=== PATIENT | male | born 1935 | race Hispanic/Latino ===

== ENCOUNTER 2020-10-30 14:52 | Inpatient (IN) | payer OTHER ==
[2020-10-30 17:15] LABS: Absolute Lymphocytes (CBC) 0.7 K/uL (0.7-4.9); Basophils % 0.6 % (0-1.3); Hematocrit 39.7 % (39.6-49.0); Lymphocytes % 8.9 % (15.3-44.8); MPV 6.5 fL (7.6-11.3); RBC Red Blood Cell Count 4.71 M/uL (4.33-5.43)
[2020-10-30 17:23] LABS: Urine Blood Trace-intact (Negative); Urine Glucose Trace (Negative); Urine Protein Negative (Negative); Urine Specific Gravity 1.015 (1.005-1.030); Urine pH 6.5 (5.0-7.0)
[2020-10-30 17:31] LABS: ALT/SGPT 14 U/L (12-78); AST/SGOT 11 U/L (15-37); Albumin 3.9 g/dL (3.4-5.0); Alkaline Phosphatase 95 U/L (45-117); BUN Blood Urea Nitrogen 8 mg/dL (7-18); Bicarbonate 25 mmol/L (21-32); Bilirubin Direct 0.3 mg/dL (0-0.2); Bilirubin Total 1.2 mg/dL (0.2-1.0); Glucose Level 164 mg/dL (74-106); Lipase 120 U/L (73-393); Protein, Total 7.6 g/dL (6.4-8.2); Sodium Level 128 mmol/L (136-145)
[2020-10-30] MEDS ORDERED: NA CHLORIDE 0.9% 500 ML ONE (17:55)
--- NOTE | 2020-10-30 17:56 | RAD REPORT ---
EXAM DESCRIPTION: CT - Stone Protocol - 10/30/2020 5:23 pm CLINICAL HISTORY: FLANK PAIN COMPARISON: No comparisons TECHNIQUE: Axial [address] imaging of the abdomen and pelvis was performed without IV contrast. No IV contrast was given because of allergy, abnormal renal function, patient refusal or physician re quest. No oral contrast administered. All CT scans are performed using dose optimization technique as appropriate and may include automated exposure control or mA/KV adjustment according to patient size. FINDINGS: Fibrotic stranding changes are present. Bronchial wall thickening seen in each lung base. No bronchiectasis. This is believed to be chronic disease. No focal mass, consolidation or pleural ef fusion. No pneumothorax. No cardiomegaly or pericardial effusion. The liver, spleen and pancreas show no suspicious findings on non-contrast imaging. Cholecystectomy c lips are present. No biliary tree dilatation. No hydronephrosis of either kidney. No obstructing or nonobstructing calculi. A 3 centimeter exophyti c cystic mass upper pole right kidney is believed to be an incidental cyst. A lobulated 6.5 centimete r cystic mass posterior mid to lower pole left kidney is present. There is homogeneous fluid attenuat ion with no calcification or fat component. This is believed to be a cluster of multiple abutting thi n-walled cysts rather than a complex septated cystic mass. No significant adrenal finding. Isodense r enal masses and pyelonephritis cannot be excluded in the absence of IV contrast. Urinary bladder show s a 3 centimeter diverticulum anterior dome. An enlarged lobulated prostate gland projects into the b ladder base. No pelvic wall invasion. Enlarged prostate gland abuts but does not appear to invade the rectum. No anterior rectal wall thickening. Stomach is decompressed. There is a very minimal hiatal hernia. No acute gastric wall thickening or m ass identified. There is a large 4 centimeter duodenal diverticulum filled with air and fluid. Small bowel loops are not dilated. An acute appendicitis is not suspected. Patient has a mobile cecum posit ioned in the right mid abdomen. Patient has is distended air and stool filled colon which is also laron te tortuous and redundant. Colon is distended up to cm in multiple locations. The rectum and sigmoid colon are not distended. The transition between distended and decompressed colon shows no wall thicke james or mass. Chronic stricture is possible. Diverticulosis is minimal. No free air, free fluid or inflammatory stranding. No hernia, mass or bulky lymphadenopathy. Disc and bone degenerative changes are present. There is degenerative minimal anterior subluxation of L4 on L5 approximately 30% wedge compression of T11 and T12 noted. No acute fracture line seen. No p athologic component. IMPRESSION: Distention of an air and stool-filled colon from cecum through descending colon up to 6- 7 cm in diameter. There is an abrupt transition between the descending colon and sigmoid colon that m ay indicate sigmoid stricture. There is no mass, wall thickening or adjacent edema at the transition point. Approximately 30% wedge compression of the T11 and T12 vertebrae with no acute fracture line or patho logic change confirmed. No comparison to establish age of the compression fractures. Acute or subacut e fracture cannot be excluded and needs correlation with focal pain symptoms at the thoracolumbar libby ction. Chronic findings as detailed. Patient has an enlarged lobulated prostate gland projects into the b ladder base. Benign prostatic hypertrophy is favored over prostate malignancy. Correlation can be mad e with PSA values. Full assessment is limited is the absence of IV contrast.
[2020-10-30 18:04] LABS: Platelet Estimate INCR; White Blood Cell Scan T (OK)
[2020-10-30 18:05] LABS: Blood Morphology Comment NOTED (NOT SEEN); Poikilocytosis 2+
[2020-10-30 18:13] LABS: Urine Bacteria <20 /HPF (NONE SEEN); Urine RBC <5 /HPF (NONE SEEN)
--- NOTE | 2020-10-30 18:33 | ER ---
Nurse's Notes [facility] Name: Andrew Soto Age: 85 yrs Sex: Male : 1935 Arrival Date: 10/30/2020 Time: 14:55 Bed 15 [facility] MD: Diagnosis: Bowel Obstruction Presentation: 10/30 15:08 Chief complaint: Patient states: Mid back/ flank pain that has been ongoing for 6 ss months, but has gotten worse. Pt was constipated for 6 days, but had a normal BM this morning. Coronavirus screen: Client denies travel out of the [place] in the last 14 days. Ebola Screen: Patient denies exposure to infectious person. Patient denies travel to an Ebola-affected area in the 21 days before illness onset. Initial Sepsis Screen: Does the patient meet any 2 criteria? No. Patient's initial sepsis screen is negative. Does the patient have a suspected source of infection? No. Patient's initial sepsis screen is negative. Risk Assessment: Do you want to hurt yourself or someone else? Patient reports no desire to harm self or others. Onset of symptoms is unknown. 15:08 Method Of Arrival: Wheelchair ss 15:08 Acuity: MEREDITH 3 ss Historical: - Allergies: 15:11 No Known Allergies; ss - PMHx: 15:11 Diabetes - NIDDM; ss - PSHx: 15:11 None; ss - Immunization history:: Adult Immunizations up to date. - Social history:: Smoking status: Patient denies any tobacco usage or history of. Screenin:39 Abuse screen: Denies threats or abuse. Denies injuries from another. Nutritional ad5 screening: No deficits noted. Tuberculosis screening: No symptoms or risk factors identified. Fall Risk Fall in past 12 months (25 points). Secondary diagnosis (15 points) IV access (20 points). Ambulatory Aid- None/Bed Rest/Nurse Assist (0 pts). Gait- Weak (10 pts.). Mental Status- Oriented to own ability (0 pts). Assessment: 17:13 General: Appears in no apparent distress. comfortable, Behavior is calm, cooperative, tr6 appropriate for age. Pain: Complains of pain in pt states he has "kidney pain". Neuro: No deficits noted. Cardiovascular: No deficits noted. Respiratory: No deficits noted. GI: No deficits noted. : Reports difficulty urinating. EENT: No deficits noted. Derm: No deficits noted. Musculoskeletal: No deficits noted. 19:22 Reassessment: Patient appears in no apparent distress at this time. Patient and/or ad5 family updated on plan of care and expected duration. Pain level reassessed. Patient is alert, oriented x 3, equal unlabored respirations, skin warm/dry/pink. 21:00 Reassessment: Patient appears in no apparent distress at this time. Pt brief changed ad5 and pt cleaned at this time. Repositioned for comfort in stretcher and provided warm blanket. Family remains at bedside. Pt denies other needs or c/o at this time. Bed low and locked, bedrails x 2, call light within reach. Informed awaiting bed placement. NAD noted, will continue to monitor. Vital Signs: 15:08 BP 147 / 81; Pulse 80; Resp 16; Temp 98.9(TE); Pulse Ox 96% on R/A; Weight 58.97 kg; ss Height 5 ft. 7 in. (170.18 cm); Pain 0/10; 17:14 BP 163 / 90; Pulse 75; Resp 18; Pulse Ox 100% on R/A; tr6 19:22 BP 170 / 76; Pulse 73; Resp 16 S; Pulse Ox 97% on R/A; ad5 20:09 BP 175 / 89; Pulse 86; Pulse Ox 99% ; mb4 21:00 BP 158 / 80; Pulse 75; Resp 16 S; Pulse Ox 97% on R/A; ad5 15:08 Body Mass Index 20.36 (58.97 kg, 170.18 cm) ED Course: 14:55 Patient arrived in ED. ds1 15:10 Triage completed. ss 15:11 Arm band placed on right wrist. ss 16:45 Shani Parekh FNP-C is PHCP. kb 16:45 Souleymane Grayson MD is Attending Physician. kb 16:53 Nina Rodas RN is Primary Nurse. tr6 17:07 Inserted saline lock: 18 gauge in right antecubital area, using aseptic technique. tr6 Blood collected. 17:22 CT Stone Protocol In Process Unspecified. EDMS 18:32 Ambrosio Porter MD is Hospitalizing Provider. kb 19:00 Patient has correct armband on for positive identification. Placed in gown. Bed in low ad5 position. Call light in reach. Side rails up X2. rn medicare on. Pulse ox on. NIBP on. 19:39 Assisted with dressing. Cleaned of incontinence. mb4 19:44 Pillow given. Head of bed elevated. mb4 21:39 No provider procedures requiring assistance completed. Patient admitted, IV remains in ad5 place. Administered Medications: 17:39 Drug: NS 0.9% 500 ml Route: IV; Rate: bolus; Site: right antecubital; tr6 19:23 Follow up: IV Status: Completed infusion; IV Intake: 500ml ad5 19:23 Drug: Cipro (ciprofloxacin) 400 mg Volume: 200 ml; Route: IVPB; Infused Over: 60 mins; ad5 Site: right antecubital; 20:33 Follow up: IV Status: Completed infusion; IV Intake: 200ml ad5 19:23 Drug: NS 0.9% 1000 ml Route: IV; Rate: 80 ml/hr; Site: right antecubital; ad5 20:32 Drug: Flagyl (metroNIDAZOLE) 500 mg Volume: 100 ml; Route: IVPB; Rate: 200 ml/hr; ad5 Infused Over: 30 mins; Site: right antecubital; Intake: 19:23 IV: 500ml; Total: 500ml. ad5 20:33 IV: 200ml; Total: 700ml. ad5 Outcome: 18:32 Decision to Hospitalize by Provider. kb 21:42 Condition: stable ad5 21:48 Admitted to Med/surg via stretcher, Report called to CHARLES Bishop ad5 21:48 Condition: stable 21:48 Instructed on the need for admit. 21:57 Patient left the ED. ad5 Signatures: Dispatcher [employer] EDOK Shani Parekh, UNDER TRIMMER-C UNDER TRIMMER-Nubia Joaquin ds1 Ly Green RN RN Mercedes Lopez mb4 Nina Rodas RN RN tr6 Jose West ad5
--- NOTE | 2020-10-30 18:33 | EDPHYS ---
Physician Documentation [facility] Name: Andrew Soto Age: 85 yrs Sex: Male : 1935 Arrival Date: 10/30/2020 Time: 14:55 Bed 15 Private MD: ED Physician Souleymane Grayson HPI: 10/30 19:32 This 85 yrs old Male presents to ER via Wheelchair with complaints of Kidney kb Pain, Diff Urinating. 19:32 The patient presents with pain that is chronic. The symptoms are located in the left kb mid back and right mid back. Onset: The symptoms/episode began/occurred 6 month(s) ago. The pain does not radiate. Associated signs and symptoms: The patient has no apparent associated signs or symptoms. The problem was sustained from unknown cause. Modifying factors: The patient symptoms are alleviated by nothing, the patient symptoms are aggravated by any movement. Severity of symptoms: At their worst the symptoms were moderate, in the emergency department the symptoms are unchanged. The patient has not experienced similar symptoms in the past. The patient has not recently seen a physician. Pt reports back pain that has been going on for 6 months. Denies injury or trauma. Also reports constipation for 6 days and difficulty urinating for a week. Denies fever, nausea, vomiting, abd pain. Historical: - Allergies: 15:11 No Known Allergies; ss - PMHx: 15:11 Diabetes - NIDDM; ss - PSHx: 15:11 None; ss - Immunization history:: Adult Immunizations up to date. - Social history:: Smoking status: Patient denies any tobacco usage or history of. ROS: 19:31 Constitutional: Negative for fever, chills, and weight loss. kb 19:31 Abdomen/GI: Positive for constipation, Negative for abdominal pain, nausea, vomiting, and diarrhea. 19:31 Back: Positive for flank pain, bilaterally. 19:31 : Positive for difficulty urinating. 19:31 All other systems are negative. Exam: 19:31 Constitutional: This is a well developed, well nourished patient who is awake, alert, kb and in no acute distress. Head/Face: Normocephalic, atraumatic. ENT: Moist Mucous membranes Cardiovascular: Regular rate and rhythm with a normal S1 and S2. No gallops, murmurs, or rubs. No pulse deficits. Respiratory: Respirations even and unlabored. No increased work of breathing, no retractions or nasal flaring. Abdomen/GI: Soft, non-tender. No distention Skin: Warm, dry with normal turgor. Normal color. MS/ Extremity: Pulses equal, no cyanosis. Neurovascular intact. Full, normal range of motion. Neuro: Awake and alert, GCS 15, oriented to person, place, time, and situation. Moves all extremities. Normal gait. Psych: Awake, alert, with orientation to person, place and time. Behavior, mood, and affect are within normal limits. Vital Signs: 15:08 BP 147 / 81; Pulse 80; Resp 16; Temp 98.9(TE); Pulse Ox 96% on R/A; Weight 58.97 kg; ss Height 5 ft. 7 in. (170.18 cm); Pain 0/10; 17:14 BP 163 / 90; Pulse 75; Resp 18; Pulse Ox 100% on R/A; tr6 19:22 BP 170 / 76; Pulse 73; Resp 16 S; Pulse Ox 97% on R/A; ad5 20:09 BP 175 / 89; Pulse 86; Pulse Ox 99% ; mb4 21:00 BP 158 / 80; Pulse 75; Resp 16 S; Pulse Ox 97% on R/A; ad5 15:08 Body Mass Index 20.36 (58.97 kg, 170.18 cm) ss MDM: 16:45 Patient medically screened. 18:25 Data reviewed: vital signs, nurses notes. Data interpreted: Pulse oximetry: on room air kb is 100 %. Interpretation: normal. Physician consultation: Tayo Carmona MD was contacted at 18:27, regarding consult, patient's condition, and will see patient in inpatient room. 18:31 Physician consultation: Alexx BUSTOS was contacted at 18:31, regarding admission, to the medical/surgical unit. patient's condition, and will see patient in ED, immediately. 10/30 16:46 Order name: Basic Metabolic Panel; Complete Time: 17:31 kb 10/30 16:46 Order name: CBC with Diff; Complete Time: 18:10 kb 10/30 16:46 Order name: Hepatic Function; Complete Time: 17:31 kb 10/30 16:46 Order name: Lipase; Complete Time: 17:31 kb 10/30 16:57 Order name: TSH; Complete Time: 18:06 tr6 10/30 16:58 Order name: Urine Microscopic Only; Complete Time: 18:14 6 10/30 16:46 Order name: CT Stone Protocol; Complete Time: 18:06 10/30 17:22 Order name: Urine Dipstick-Ancillary; Complete Time: 17:31 EDAL 10/30 18:04 Order name: CBC Smear Scan; Complete Time: 18:10 [facility] 10/30 18:25 Order name: Lactate 10/30 18:25 Order name: Lactate; Complete Time: 20:24 EDAL 10/30 16:46 Order name: IV Saline Lock; Complete Time: 17:07 kb 10/30 16:46 Order name: Labs collected and sent; Complete Time: 17:07 10/30 16:58 Order name: Urine Dipstick-Ancillary (obtain specimen); Complete Time: 17:33 6 10/30 20:10 Order name: CONS Physician Consult EDAL Administered Medications: 17:39 Drug: NS 0.9% 500 ml Route: IV; Rate: bolus; Site: right antecubital; tr6 19:23 Follow up: IV Status: Completed infusion; IV Intake: 500ml ad5 19:23 Drug: Cipro (ciprofloxacin) 400 mg Volume: 200 ml; Route: IVPB; Infused Over: 60 mins; ad5 Site: right antecubital; 20:33 Follow up: IV Status: Completed infusion; IV Intake: 200ml ad5 19:23 Drug: NS 0.9% 1000 ml Route: IV; Rate: 80 ml/hr; Site: right antecubital; ad5 20:32 Drug: Flagyl (metroNIDAZOLE) 500 mg Volume: 100 ml; Route: IVPB; Rate: 200 ml/hr; ad5 Infused Over: 30 mins; Site: right antecubital; Disposition: 10/31 07:25 Co-signature as Attending Physician, Souleymane Grayson MD I agree with the assessment and bill plan of care. Disposition: 10/30/20 18:32 Hospitalization ordered by Ambrosio Porter for Inpatient Admission. Preliminary diagnosis is Bowel Obstruction. - Bed requested for Telemetry/MedSurg (Inpatient). - Status is Inpatient Admission. ad5 - Condition is Stable. - Problem is new. - Symptoms are unchanged. Signatures: Dispatcher [employer] EDMS Shani Parekh FNP-C CARPENTRY INSTRUCTOR-Ckb Souleymane Grayson MD MD cha Smirch, Shelby, CHARLES RN ss Gracie Perez, CHARLES RN Nina Rodas RN RN tr6 Brett Jose ad5 Corrections: (The following items were deleted from the chart) 10/30 21:12 18:32 Hospitalization Ordered by Ambrosio Porter MD for Inpatient Admission. Preliminary cg diagnosis is Bowel Obstruction. Bed requested for Telemetry/MedSurg (Inpatient). Status is Inpatient Admission. Condition is Stable. Problem is new. Symptoms are unchanged. kb 21:57 21:12 10/30/2020 18:32 Hospitalization Ordered by Ambrosio Porter MD for Inpatient ad5 Admission. Preliminary diagnosis is Bowel Obstruction. Bed requested for Telemetry/MedSurg (Inpatient). Status is Inpatient Admission. Condition is Stable. Problem is new. Symptoms are unchanged. cg
[2020-10-30] MEDS ORDERED: CIPROFLOXACIN 400mg IV 400 MG/200 ML BAG IV ONE (19:14)
[2020-10-30] MEDS ORDERED: METRONIDAZOLE 500mg IVPB 500 MG/100 ML BAG IV ONE (19:14)
[2020-10-30] MEDS ORDERED: NA CHLORIDE 0.9% 1,000 ML ONE (19:14)
--- NOTE | 2020-10-30 21:05 | P.HP ---
Certification for Inpatient Patient admitted to: Inpatient With expected LOS: >2 Midnights Patient will require the following post-hospital care: None Practitioner: I am a practitioner with admitting privileges, knowledge of patient current condition, hospital course, and medical plan of care. Services: Services provided to patient in accordance with Admission requirements found in Title 42 Section 412.3 of the Code of Federal Regulations Patient History Date of Service: 10/30/20 Primary Care Provider: Abbe Reason for admission: LBO History of Present Illness: Mr. Soto is an 85 yo M with diabetes who presents with 6 days of constipation. He denies abdominal pain, nausea, and vomiting. CT scan revealed distension of air and stool-filled colon from cecum through descending colon up to 6-7cm in diameter with abrupt transition between descending and sigmoid colon that may indicate sigmoid stricture. Additionally he presents with difficulty urinating. Reports urgency and incontinence. Denies frequency, hematuria. CT scan revealed enlarged lobulated prostate gland projecting into bladder base, BPH favored over malignancy. He also reports 6 months of back pain after a fall. CT shows 30% wedge compression of T11 and T12 vertebrae with no acute fracture line or pathologic change confirmed. Na 128, Cl 92, Glu 164. - Past Medical/Surgical History Diabetic: Yes -: DM -: kidney stones Psychosocial/ Personal History: - Social History Smoking Status: Never smoker Alcohol use: No CD- Drugs: No Caffeine use: Yes Place of Residence: Home Review of Systems 10-point ROS is otherwise unremarkable Gastrointestinal: Constipation Genitourinary: Urgency, Incontinence Musculoskeletal: Back Pain Physical Examination - Physical Exam General: Alert, In no apparent distress HEENT: Atraumatic, PERRLA, Mucous membr. moist/pink, EOMI, Sclerae nonicteric Neck: Supple, 2+ carotid pulse no bruit, No LAD, Without JVD or thyroid abnormality Respiratory: Clear to auscultation bilaterally, Normal air movement Cardiovascular: Regular rate/rhythm, Normal S1 S2 Gastrointestinal: Hypoactive, No tenderness, No masses, No rebound, No guarding Musculoskeletal: No clubbing, No swelling, No contractures, No erythema, No warmth, Tenderness Integumentary: No rashes Neurological: Normal speech, Normal strength at 5/5 x4 extr, Normal tone, Sensation intact, Cranial nerves 3-12 intact, Normal affect Lymphatics: No axilla or inguinal lymphadenopathy - Studies Laboratory Data (last 24 hrs) 10/30/20 17:04: WBC 8.10, Hgb 13.0 L, Hct 39.7, Plt Count 471 H 10/30/20 17:04: Sodium 128 L, Potassium 4.0, BUN 8, Creatinine 0.54 L, Glucose 164 H, Total Bilirubin 1.2 H, AST 11 L, ALT 14, Alkaline Phosphatase 95, Lipase 120 Assessment and Plan - Problems (Diagnosis) (1) T2DM (type 2 diabetes mellitus) Current Visit: Yes Status: Chronic Qualifiers: Diabetes mellitus manager long term care insulin use: without manager long term care use Diabetes mellitus complication status: without complication Qualified Code(s): E11.9 - Type 2 diabetes mellitus without complications (2) HTN (hypertension) Current Visit: Yes Status: Chronic Qualifiers: Hypertension type: essential hypertension Qualified Code(s): I10 - Essential (primary) hypertension (3) Compression fracture Current Visit: Yes Status: Chronic (4) Hyponatremia Current Visit: Yes Status: Acute (5) Enlarged prostate Current Visit: Yes Status: Acute (6) Large bowel obstruction Current Visit: Yes Status: Acute - Plan surgery consulted NPO, continue IV cipro and flagyl, continue IV NS will continue to monitor Na, will consult nephrology if no improvement in the AM pain management as needed, PT consulted ESR, CRP, PSA, vitamin D, mag/phos pending sliding scale insulin and accuchecks hydralazine PRN for BP spikes will likely need to see urology as an outpatient for BPH, can start oral medications once LBO resolves Discharge Plan: Home Plan to discharge in: 48 Hours - Advance Directives Does patient have a Living Will: No Does patient have a Durable POA for Healthcare: No - Code Status/Comfort Care Code Status Assessed: Yes (full code) Critical Care: No Time Spent Managing Pts Care (In Minutes): 70
[2020-10-30 22:29] VITALS: BMI 20.3
[2020-10-30] MEDS ORDERED: HYDRALAZINE HCL 20 MG/ML VIAL IV PRN (23:00)
[2020-10-30] MEDS: INSULIN -REGULAR HUMAN 50 UNIT/0.5 ML ML SQ SCH (23:00)
[2020-10-30] MEDS ORDERED: ACETAMINOPHEN 500 MG TAB PO PRN (23:00)
[2020-10-30] MEDS ORDERED: ONDANSETRON 4 MG/2 ML VIAL IV PRN (23:00)
[2020-10-30 23:44] LABS: C-Reactive Protein < 2.90 mg/L (<3.00)
[2020-10-31] MEDS: MORPHINE 2 MG/ML SYR IV PRN ×2 (00:37→20:15)
[2020-10-31] MEDS: NA CHLORIDE 0.9% 1,000 ML IV SCH ×3 (00:38→20:09)
[2020-10-31 03:54] LABS: Urine Appearance CLEAR (Clear); Urine Bilirubin NEGATIVE (Negative); Urine Blood NEGATIVE (Negative); Urine Color YELLOW (Yellow); Urine Glucose TRACE (Negative); Urine Protein NEGATIVE (Negative); Urine Specific Gravity <=1.005 (1.005-1.030)
[2020-10-31 03:57] LABS: Urine Microscopic Reflex NO UMIC
[2020-10-31 03:59] LABS: Absolute Lymphocytes (CBC) 0.8 K/uL (0.7-4.9); Basophils % 0.7 % (0-1.3); Hematocrit 35.7 % (39.6-49.0); Lymphocytes % 12.8 % (15.3-44.8); MPV 6.7 fL (7.6-11.3); RBC Red Blood Cell Count 4.23 M/uL (4.33-5.43)
[2020-10-31] MEDS: METRONIDAZOLE 500mg IVPB 500 MG/100 ML BAG IV SCH ×3 (04:00→20:10)
[2020-10-31 04:18] LABS: ALT/SGPT 11 U/L (12-78); AST/SGOT 8 U/L (15-37); Albumin 3.3 g/dL (3.4-5.0); Alkaline Phosphatase 75 U/L (45-117); BUN Blood Urea Nitrogen 5 mg/dL (7-18); Bicarbonate 28 mmol/L (21-32); Bilirubin Total 1.1 mg/dL (0.2-1.0); Glucose Level 125 mg/dL (74-106); HDL Cholesterol 48 mg/dL (40-60); LDL Cholesterol, Calculated 58 (<130); Magnesium 2.1 mg/dL (1.8-2.4); Phosphorus 3.2 mg/dL (2.5-4.9); Potassium 3.8 mmol/L (3.5-5.1); Protein, Total 6.4 g/dL (6.4-8.2); Sodium Level 133 mmol/L (136-145)
[2020-10-31] MEDS ORDERED: KCL 20 MEQ/100 mL IVPB 20 MEQ/100 ML BAG IV SCH (06:00)
[2020-10-31] MEDS: INSULIN -REGULAR HUMAN 50 UNIT/0.5 ML ML SQ SCH ×4 (07:30→20:11)
[2020-10-31] MEDS: CIPROFLOXACIN 400mg IV 400 MG/200 ML BAG IV SCH ×2 (08:00→20:10)
[2020-10-31] MEDS: LIDOCAINE 4% PATCH TOP SCH (08:13)
[2020-10-31] MEDS ORDERED: PNEUMOCOCCAL VACCINE 0.5 ML IMVAC ONE (09:00)
[2020-10-31 20:51] VITALS: O2SAT 96
[2020-11-01] MEDS: METRONIDAZOLE 500mg IVPB 500 MG/100 ML BAG IV SCH ×2 (03:31→12:54)
[2020-11-01 04:17] LABS: BUN Blood Urea Nitrogen 5 mg/dL (7-18); Bicarbonate 25 mmol/L (21-32); Glucose Level 140 mg/dL (74-106); Potassium 3.9 mmol/L (3.5-5.1); Sodium Level 135 mmol/L (136-145)
[2020-11-01] MEDS ORDERED: POTASSIUM 25 MEQ EFFERV TAB PO ONE (04:45)
[2020-11-01] MEDS: NA CHLORIDE 0.9% 1,000 ML IV SCH (05:31)
[2020-11-01] MEDS: INSULIN -REGULAR HUMAN 50 UNIT/0.5 ML ML SQ SCH ×2 (07:30→12:56)
[2020-11-01] MEDS: CIPROFLOXACIN 400mg IV 400 MG/200 ML BAG IV SCH (08:58)
[2020-11-01] MEDS: LIDOCAINE 4% PATCH TOP SCH (08:58)
--- NOTE | 2020-11-01 09:16 | P.PN ---
Subjective Date of Service: 11/01/20 Primary Care Provider: Abbe Chief Complaint: LBO Subjective: Improving (patient is pain free, feels better, passing gas) Physical Examination - Vital Signs Temperature: 96.9 F Blood Pressure: 183/80 Pulse: 86 Respirations: 16 Pulse Ox (%): 98 - Physical Exam General: Alert, In no apparent distress, Cooperative Gastrointestinal: Soft and benign, No ascites, No tenderness, No masses, No rebound, No guarding Assessment And Plan - Current Problems (Diagnosis) (1) Large bowel obstruction Current Visit: Yes Status: Acute Plan: - likely stool impaction / dehydration - having return of bowel function, start clears and advance as tolerated - enemas daily - serial exams - will need outpatient colonoscopy
--- NOTE | 2020-11-01 09:17 | P.PN ---
Subjective Date of Service: 11/01/20 Primary Care Provider: Abbe Chief Complaint: LBO Subjective: Improving Physical Examination - Vital Signs Temperature: 96.9 F Blood Pressure: 183/80 Pulse: 86 Respirations: 16 Pulse Ox (%): 98 - Physical Exam General: Alert, In no apparent distress, Cooperative Respiratory: Clear to auscultation bilaterally, Normal air movement Cardiovascular: Regular rate/rhythm Gastrointestinal: Soft and benign, Non-distended, No ascites, No tenderness, No masses, No rebound, No guarding Assessment And Plan - Current Problems (Diagnosis) (1) Large bowel obstruction Current Visit: Yes Status: Acute Plan: - likely stool impaction / dehydration - having return of bowel function, start clears and advance as tolerated - enemas daily - serial exams - will need outpatient colonoscopy - reviewed with patient to follow up in 1 carolyn green
[2020-11-01 12:36] VITALS: BP 173/91; TEMP 97.2
--- NOTE | 2020-11-01 13:19 | CON ---
Date of Consultation: 10/30/2020 Brief History Of Present Illness: The patient is an 85-year-old male with diabetes who presents with 6 days of constipation. Denied abdominal pain, nausea, or vomiting. He had distention of his colon with an abrupt transition at the sigmoid junction concerning for a large bowel obstruction. He felt significant improvement with hydration and felt that he was dehydrated prior to my arrival. Past Medical History: Significant only for free of diabetes. Past Surgical History: Denies. Social History: He denies smoking, alcohol, or recreational drug use. Review of Systems: Ten-point review of systems other than HPI, denies. Physical Examination: Vital Signs: At the time examination, his blood pressure is 176/86, pulse 75, respiratory rate 17, t emperature 97.5. General: He is awake, alert, and oriented. Psychiatric: He is appropriate for his age. HEENT: Normocephalic. Sclerae anicteric. Mucous membranes are moist. Oropharynx clear. Neck: Supple without JVD. Chest: Normal expansion and excursion. Cardiovascular: Regular rate and rhythm. Pulmonary: Clear auscultation bilaterally. Abdomen: Soft, nontender, and nondistended. No rebound. No guarding. No focal peritonitis. Extremities: No clubbing, cyanosis, or edema. SKIN: Warm and dry. Laboratory Data: Reveals a white blood cell count of 8.2, hemoglobin is 13.0, hematocrit 39.7, plate let count is 471. His sodium is 128, potassium 4.0, chloride 92, carbon dioxide 25, BUN 8, creatinin e 0.5, glucose 164, lactic acid is 1.3, calcium 8.6. Total bilirubin 1.2, direct bilirubin 0.3, AST 11, ALT 14, alkaline phosphatase is 95. He had a CT scan performed of the abdomen and pelvis, officially read as distention of the hair and s tool-filled colon from cecum to descending colon up to 6 to 7 cm in diameter, abrupt transition at th e descending colon and sigmoid, may indicate sigmoid stricture. No mass, wall thickening or adjacent edema without transition point, wedge compression of T12-T11 vertebrae. No comparison established o r age of the compression fraction. Assessment And Plan: This is an 85-year-old male who came in with a stool burden, possible large bow el obstruction. 1.IV fluid hydration. 2.Electrolyte correction. 3.Serial abdominal exams. 4.I recommend enemas as the patient appears to be fecal impacted. 5.The patient will need outpatient colonoscopy. I have explained the risks, benefits, and alternati ves of the above stated plan. The patient agrees to proceed as indicated. YONATHAN/BEATRIZ Voice ID: [id number] Report ID: [id number]
[2020-11-01] MEDS ORDERED: METFORMIN HCL 500 MG TAB PO SCH (17:00)
[2020-11-02] MEDS ORDERED: lisinopriL 5 MG TAB PO SCH (09:00)
== END 2020-11-01 16:15 | disposition home or self-care (01) | DRG 389 ==
LOC: ER 14:52 → ERHOLD 20:09 → 4TH 21:39
PROVIDERS: ADMIT Hospitalist; ATTEND Hospitalist
DX: K56.609 Unspecified intestinal obstruction, unspecified as to partial versus complete obstruction (principal); E87.1 Hypo-osmolality and hyponatremia; K59.00 Constipation, unspecified; E11.9 Type 2 diabetes mellitus without complications; E86.0 Dehydration; N40.0 Benign prostatic hyperplasia without lower urinary tract symptoms; S22.080D Wedge compression fracture of T11-T12 vertebra, subsequent encounter for fracture with routine healing; Z20.822 Contact with and (suspected) exposure to COVID-19
CPT/HCPCS: 36415; 74176; 76377; 80048; 80053; 80061; 80076; 81003; 81015; 82306; 82947; 83605; 83690; 83735; 84100; 84153; 84403; 84439; 84443; 85025; 85652; 86140; 94760; 96361; 96365; 96375; 97116; 97161; 97530; 99285; J0360; J0744; J2270; J3480; J7030; J7040

== ENCOUNTER 2020-12-04 08:02 | Day surgery (SDC) | payer OTHER ==
[2020-12-04] MEDS ORDERED: NA CHLORIDE 0.9% 1,000 ML ONE (08:34)
[2020-12-04] MEDS ORDERED: propofoL 200 MG/20 ML VIAL IV ONE (08:40)
[2020-12-04] MEDS ORDERED: GLYCOPYRROLATE 0.2 MG/ML SYR ONE (08:40)
[2020-12-04] MEDS ORDERED: LIDOCAINE 1% MPF 30 ML VIAL ONE (08:40)
--- NOTE | 2020-12-04 09:00 | ENDO RPT ---
[address], [address] COLONOSCOPY PROCEDURE REPORT EXAM DATE: 12/04/2020 PATIENT NAME: Andrew Soto MR #: [id number] BIRTHDATE: 1935 ATTENDING: Tayo Carmona DR STATUS: outpatient PERSONAL FINANCIAL PLANNER: Sheri Iyer RN and Jory Rendon RN INDICATIONS: The patient is a 85 yr old Male here for a colonoscopy due to History of possible large bowel obstruction PROCEDURE PERFORMED: Flexible Sigmoidoscopy MEDICATIONS: Per Anesthesia. ESTIMATED BLOOD LOSS: None CONSENT: The patient understands the risks and benefits of the procedure and understands that these risks include, but are not limited to: sedation, allergic reaction, infection, perforation and/or bleeding. Alternative means of evaluation and treatment include, among others: physical exam, x-rays, and/or surgical intervention. The patient elects to proceed with this endoscopic procedure. DESCRIPTION OF PROCEDURE: During intra-op preparation period all mechanical medical equipment was checked for proper function. Hand hygiene and appropriate measures for infection prevention was taken. Procedure, possible complications, alternatives including, but not limited to possibility of bleeding, perforation, tear, infection, sepsis, need for surgery, need for blood transfusion, were explained to the patient. After the risks, benefits and alternatives of the procedure were thoroughly explained, Informed consent was verified, confirmed and timeout was successfully executed by the treatment team. The patient was placed in the left lateral position. A digital rectal exam was performed and revealed an enlarged prostate and A digital rectal exam was performed and revealed internal hemorrhoids. After appropriate level of anesthesia, the scope was passed. The EC-[id number] ([id number]) endoscope was introduced through the anus and advanced to the sigmoid colon. The quality of the prep was inadequate. The instrument was then slowly withdrawn as the colon was fully examined. Scope withdrawal time was 5 minutes. COLON FINDINGS: Unprepped Colon. Retroflexed views revealed no abnormalities. The scope was then completely withdrawn from the patient and the procedure terminated. ADVERSE EVENTS: There were no complications. IMPRESSIONS: Unprepped Colon RECOMMENDATIONS: 1. follow-up: office 1 week(s) 2. barium enema RECALL: Return in 1 week(s) for Colonoscopy. Unprepped Colon Tayo Carmona DR eSigned: Tayo Carmona DR 12/04/2020 9:00 AM cc: CPT CODES: ICD9 CODES:
[2020-12-04 09:50] VITALS: TEMP 97.5
[2020-12-04 10:05] VITALS: BP 106/52; O2SAT 99
== END 2020-12-04 10:05 | disposition home or self-care (01) ==
LOC: OR 08:02
PROVIDERS: ATTEND Surgery
PROC: 0DJD8ZZ Inspection of Lower Intestinal Tract, Via Natural or Artificial Opening Endoscopic (ICD-10-PCS; principal; 2020-12-04 09:15)
DX: K56.609 Unspecified intestinal obstruction, unspecified as to partial versus complete obstruction (principal); K64.8 Other hemorrhoids; N40.0 Benign prostatic hyperplasia without lower urinary tract symptoms; I10 Essential (primary) hypertension; E11.9 Type 2 diabetes mellitus without complications
CPT/HCPCS: 82947; 45330; J2704; J7030

== ENCOUNTER 2021-05-06 13:02 | Inpatient (IN) | payer OTHER ==
--- OUTSIDE RECORDS SUMMARY | 2021-05-06 13:05 | XMS REPORT | Continuity of Care Document ---
:1935 Author Organization [facility] t Address [address] [place] [address] Care Team Providers Name Role Phone Marietta Garcia MD Attending Clinician Field-Hrt Attending Clinician Unavailable CYNTHIA GARCIA Attending Clinician Unavailable CYNTHIA GARCIA Admitting Clinician Unavailable Payers Payer Name Policy Type Policy Number Effective Date Expiration Date S ource Problems Condition Condition Condition Status Onset Resolution Last Treating Co mments Source Name Details Category Date Date Treatment Clinician Date Glaucoma Glaucoma Disease Active [facility] r following following 07-23 [facility] surgery surgery 00:00: of 00 Medicin e Allergic Allergic Disease Active [facility] contact contact 2-18 College dermatitis dermatitis 00:00: of due to due to 00 Medicin drugs in drugs in e contact contact with skin with skin Primary Primary Disease Active 2017-05 [facility] open angle open angle 0-22 Co llege glaucoma glaucoma 00:00: of (POAG) of (POAG) of 00 Medi radha both eyes, both eyes, e severe severe stage stage 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 [facility] of both ia of both 0-08 Co llege eyes eyes 00:00: of 00 Medicin e Bullous Bullous Disease Active 2013-05 [facility] keratopath keratopath - Co llege y y 00:00: of 00 Medicin e Lens Lens Disease Active 2013-05 [facility] replaced replaced Colleg e by other by other 00:00: of means means 00 Medicin e Glaucoma Glaucoma Disease Active 2013-05 [facility] 2- [place] 00:00: of 00 Medicin e Allergies, Adverse Reactions, Alerts Allergy Allergy Status Severity Reaction(s) Onset Inactive Treating Comm ents Source Name Type Date Date Clinician Todd Asencio Active [facility] il ty to [address] [place] adverse 00:00: of reaction 00 Medicin s to e drug Social History Social Habit Start Date Stop Date Quantity Comments Source Sex Assigned At [facility] llege of Medicine Exposure to Not sure [facility] Colle e of SARS-CoV-2 (event) Medici ne Tobacco use and 2020-02-28 2020-02-28 Never used [facility] llege of exposure 00:00:00 00:00:00 Medicine Smoking Status Start Date Stop Date Source Never smoker [facility] o f Medicine Medications Ordered Filled Start Stop Current Ordering Indication Dosage Frequency Signature Comments Components Source Medication Medication Date Date Medication? Clinician (SIG) Name Name diflupredna Yes 1[drp] Place 1 [facility] 4-29 Drop into College (DUREZOL) 00:00: the left of 0.05 % 00 eye four Medicin ophthalmic times e emulsion daily. gatifloxaci 2018- Yes 1[drp] Place 1 [facility] (ZYMAXID) 4-29 Drop into Col lege 0.5 % 00:00: the left of ophthalmic 00 eye 3 Medicin solution times e daily. diflupredna 2018-0 Yes 1[drp] Place 1 [facility] 4-29 Drop into [place] (DUREZOL) 00:00: the left of 0.05 % 00 eye four Medicin ophthalmic times e emulsion daily. gatifloxaci 2019- Yes 1[drp] Place 1 [facility] (ZYMAXID) 4-29 Drop into Col lege 0.5 % 00:00: the left of ophthalmic 00 eye 3 Medicin solution times e daily. diflupredna 2019-0 Yes 1[drp] Place 1 [facility] 4-29 Drop into College (DUREZOL) 00:00: the left of 0.05 % 00 eye four Medicin ophthalmic times e emulsion daily. gatifloxaci 2019- Yes 1[drp] Place 1 [facility] (ZYMAXID) 4-29 Drop into Col lege 0.5 % 00:00: the left of ophthalmic 00 eye 3 Medicin solution times e daily. diflupredna 2018- 2020- No 1[drp] Place 1 [facility] te 09-14 Drop into College (DUREZOL) 00:00: 00:00 the left of 0.05 % 00 :00 eye four Medicin ophthalmic times e emulsion daily. gatifloxaci 2020- No 1[drp] Place 1 [facility] n (ZYMAXID) 09-14 Drop into Co llege 0.5 % 00:00: 00:00 the left of ophthalmic 00 :00 eye 3 Medicin solution times e daily. methazolAMI 2019-0 Yes 50mg Take 50 mg [facility] DE 50 MG 2-18 by mouth College TABS 00:00: two times of 00 daily. Medicin e methazolAMI Yes 50mg Take 50 mg [place] 50 MG 2-18 by mouth College TABS 00:00: two times of 00 daily. Medicin e methazolAMI 0 Yes 50mg Take 50 mg [place] 50 MG 2-18 by mouth College TABS 00:00: two times of 00 daily. Medicin e methazolAMI 2020- No 50mg Take 50 mg [place] 50 MG 2-18 10-12 by mouth Colleg e TABS 00:00: 00:00 two times of 00 :00 daily. Medicin e metformin 2018-0 Yes 1000mg Take 1,000 [facility] (GLUCOPHAGE 9-27 mg by [place] ) 1000 MG 00:00: mouth two of tablet 00 times Medicin daily. e metformin 2018-0 Yes 1000mg Take 1,000 [facility] (GLUCOPHAGE 9-27 mg by [place] ) 1000 MG 00:00: mouth two of tablet 00 times Medicin daily. e metformin 2018-0 Yes 1000mg Take 1,000 [facility] (GLUCOPHAGE 9-27 mg by [place] ) 1000 MG 00:00: mouth two of tablet 00 times Medicin daily. e metformin 2018-0 Yes 1000mg Take 1,000 [place] (GLUCOPHAGE 9-27 mg by [place] ) 1000 MG 00:00: mouth two of tablet 00 times Medicin daily. e Metformin Metformin Yes Quintin TAKE [address] HCl HCl [facility]T [facility] Quintin [address] [facility] Vitamin B12 Vitamin B12 2018- No Quintin [address] [facility] 02-12 [facility] Procedures Procedure Date / Time Performed Performing Clinician [facility] ubaldo RANGEL VISUAL FIELD 2019-07-05 20:52:38 Marietta Garcia [facility] - BOTH EYES Medicine Plan of Care Planned Activity Planned Date Details Comments Source Future Scheduled MEDICARE AWV [code [facility] Test = MEDICARE AWV] of Medicine Future Scheduled TETANUS SHOT [facility] Endy ege Test (ADULT) [code = of Medicine TETANUS SHOT (ADULT)] Future Scheduled FALL SCREEN [code [facility] Test = FALL SCREEN] of Medicine Future Scheduled PNEUMOVAX >=65 [facility] Co llege Test (PPSV23) [code = of Medicine PNEUMOVAX >=65 (PPSV23)] Future Scheduled PREVNAR >= 65 [facility] Col lege Test (PCV13) [code = of Medicine PREVNAR >= 65 (PCV13)] Future Scheduled FLU VACCINE > 6 [facility] C ollege Test MONTHS [code = FLU of Medici ne VACCINE > 6 MONTHS] Future Scheduled TETANUS SHOT [place] Endy ege Test (ADULT) [code = of Medicine TETANUS SHOT (ADULT)] Future Scheduled MEDICARE AWV [place] Endy ege Test (Initial) [code = of Medicin e MEDICARE AWV (Initial)] Future Scheduled FALL SCREEN [code [facility] Test = FALL SCREEN] of Medicine Future Scheduled PNEUMOVAX >=65 [facility] Co llege Test (PPSV23) [code = of Medicine PNEUMOVAX >=65 (PPSV23)] Future Scheduled PREVNAR >= 65 [facility] Col lege Test (PCV13) [code = of Medicine PREVNAR >= 65 (PCV13)] Future Scheduled FLU VACCINE > 6 [place] C ollege Test MONTHS [code = FLU of Medici ne VACCINE > 6 MONTHS] Future Scheduled TETANUS SHOT [place] Endy ege Test (ADULT) [code = of Medicine TETANUS SHOT (ADULT)] Future Scheduled MEDICARE AWV [place] Endy ege Test (Initial) [code = of Medicin e MEDICARE AWV (Initial)] Future Scheduled PNEUMOVAX >=65 [place] Co llege Test (PPSV23) [code = of Medicine PNEUMOVAX >=65 (PPSV23)] Future Scheduled PREVNAR >= 65 [facility] Col lege Test (PCV13) [code = of Medicine PREVNAR >= 65 (PCV13)] Future Scheduled FLU VACCINE > 6 [facility] C ollege Test MONTHS [code = FLU of Medici ne VACCINE > 6 MONTHS] Future Scheduled FALL SCREEN [code [facility] Test = FALL SCREEN] of Medicine Future Scheduled TETANUS SHOT [facility] Endy ege Test (ADULT) [code = of Medicine TETANUS SHOT (ADULT)] Future Scheduled ZOSTER VACCINE (1 [facility] Test of 2) [code = of Medicine ZOSTER VACCINE (1 of 2)] Future Scheduled MEDICARE AWV [facility] Endy ege Test (Initial) [code = of Medicin e MEDICARE AWV (Initial)] Future Scheduled PNEUMOVAX >=65 [facility] Co llege Test (PPSV23) [code = of Medicine PNEUMOVAX >=65 (PPSV23)] Future Scheduled FLU VACCINE > 6 [facility] C ollege Test MONTHS [code = FLU of Medici ne VACCINE > 6 MONTHS] Future Scheduled FALL SCREEN [code [facility] Test = FALL SCREEN] of Medicine Future Scheduled RANGEL VISUAL 1 Occurrences [facility] Test FIELD - OU - BOTH starting 03/04/2019 of Medicine EYES [code = until 06/04/2020 18553] Encounters Start End Encounter Admission Attending Care Care Encounter Source Date/Time Date/Time Type Type Clinicians Facility Department ID 2021-01-01 2021-01-01 Outpatient [facility] [id number] LYDIA Ferrer 00:00:00 00:00:[facility] 2020-11-06 2020-11-06 Outpatient [facility] [id number] LYDIA Ferrer 00:00:00 00:00:[facility] 2020-11-02 2020-11-02 Outpatient [facility] [id number] LYDIA Ferrer 00:00:00 00:00:[facility] 2020-10-30 2020-10-30 Outpatient [facility] [id number] LYDIA Ferrer 00:00:00 00:00:[facility] 2020-10-02 2020-10-02 Outpatient [facility] [id number] [facility] 2020-10-02 2020-10-02 [facility] [id number] 2020-06-29 2020-06-29 Outpatient [facility] [id number] [facility] 2020-03-27 2020-03-27 [facility] [id number] [facility] 2020-02-28 2020-02-28 Office MIGUEL A Garcia [id number] [facility] 13:36:14 15:42:01 Visit Marietta AMBULATOR [id number] College Cynthia Y [id number] of [id number] [facility] 300 e 2020-01-06 2020-01-06 [facility] [id number] 14:30:00 14:30:00 t [facility] - [facility] Medicine Outpati ent Clinics 2019-11-01 2019-11-01 Office Radha [facility] [id number] [facility] 13:58:04 15:19:28 Visit Marietta AMBULATOR [id number] College Cynthia Y [id number] of [id number] [facility] radha 300 e 2019-10-06 2019-10-06 [facility] [id number] 16:30:00 16:30:00 t Rigby COSMIC COLOR s - [facility] Medicine Outpati ent Clinics 2019-10-06 2019-10-06 [facility] [id number] 15:45:00 15:45:00 t AppMyDay s - Drive [facility] Medicine Outpati ent Clinics 2019-07-05 2019-07-05 Office Marietta Garcia Cynthia [facility] [id number] [facility] 14:12:47 14:52:47 Visit Field-Hrt, Visual AMBULATOR [id number] 1 College Y [id number] of [id number] [facility] 300 e 2019-05-20 2019-05-20 [facility] [id number] 09:14:00 09:14:00 [facility] 2019-03-04 2019-03-04 Office LIAN Garcia [id number] [facility] 12:41:18 15:53:57 Visit Marietta AMBULATOR [id number] College Cynthia Y [id number] of [id number] [facility] 300 e 2019-02-17 2019-02-17 [facility] [id number] 13:00:00 13:00:00 [facility] Clinics 2018-08-18 2018-08-18 [facility] [id number] 13:15:00 13:15:00 [facility] 2018-02-17 2018-02-17 [facility] [id number] 13:45:00 13:45:00 [facility] Results Test Description Test Time Test Comments Results Result [facility] e Comments RANGLE VISUAL 2019-07-05 Study [facility] FIELD - OU - BOTH 21:52:13 performed/reviewed [facility] EYES : none Assessment Medicin e & Plan: Encounter Diagnosis and Orders ICD-10-CM 1. Primary open angle glaucoma (POAG) of both eyes, severe stage H40.1133 2. Glaucoma following surgery H40.9 RANGEL VISUAL FIELD - OU - BOTH EYES 1.S/p trab with [facility] OS 09/16/2018, trabeculecomy with [facility] (20mcg) OD- doing great- intolerant or allergic to many topical meds- off all drops, if creeps into high teens next visit, may add am occudose The patient is asked to return in/for 4 months IOP check. /DFE Risks, benefits, and alternatives of treatment discussed with the patient. All questions regarding diagnosis and treatment answered to satisfaction. The history, exam, testing, assessment and plan of the learner or auto glass technician, if present, have been reviewed and I personally examined the patient.I have reviewed the PMH, SH, FHX, ROS, MEDS, ALLERGIES and HPI, and have updated the computerized patient record appropriately. POCT-GLUCOSE METER 2018-09-23 05:11:00 Test Item Value Reference Range Interpretation Comme nts POC-GLUCOSE METER (Uro Jock) (test 120 mg/dL 70-110 H TESTED AT [facility] 7200 code = 1538) [facility] [id number] POCT-GLUCOSE [id number] 09:44:00 Test Item Value Reference Range Interpretation Comments POC-GLUCOSE METER 158 mg/dL 70-110 H TESTED AT [facility] 7200 (Uro Jock) (test code JAMIE Valiente [facility] B = 1538) [facility] 7703 0
[2021-05-06 14:29] LABS: ALT/SGPT 18 U/L (12-78); AST/SGOT 15 U/L (15-37); Alkaline Phosphatase 88 U/L (45-117); BUN Blood Urea Nitrogen 33 mg/dL (7-18); Bicarbonate 24 mmol/L (21-32); Bilirubin Direct 0.4 mg/dL (0-0.2); Bilirubin Total 1.1 mg/dL (0.2-1.0); Glucose Level 120 mg/dL (74-106); Potassium 3.7 mmol/L (3.5-5.1); Protein, Total 6.2 g/dL (6.4-8.2); Sodium Level 145 mmol/L (136-145)
[2021-05-06 14:30] LABS: Magnesium 1.9 mg/dL (1.8-2.4); NT PRO-BNP 198 pg/mL (<450)
[2021-05-06 14:35] LABS: Absolute Lymphocytes (CBC) 1.3 K/uL (0.7-4.9); Basophils % 0.9 % (0-1.3); Hematocrit 43.4 % (39.6-49.0); Lymphocytes % 14.5 % (15.3-44.8); MPV 7.2 fL (7.6-11.3); RBC Red Blood Cell Count 4.77 M/uL (4.33-5.43)
[2021-05-06 14:57] LABS: Protime INR 0.99
--- NOTE | 2021-05-06 15:29 | RAD REPORT ---
EXAM DESCRIPTION: CT - Chest Abdomen Pelvis W Cont - 05/06/2021 3:09 pm CLINICAL HISTORY: Chest and abdominal pain. Hematuria COMPARISON: October 2020 TECHNIQUE: Computed axial tomography of the chest, abdomen and pelvis was obtained. 100 cc Isovue-30 0 was administered intravenously. Oral contrast was not requested. This limits evaluation of bowel. All CT scans are performed using dose optimization technique as appropriate and may include automated exposure control or mA/KV adjustment according to patient size. FINDINGS: Mild tree-in-bud opacities right lower lobe. A pleural effusion is not present. A pericardial effusion is not seen No mediastinal or hilar lymphadenopathy The liver, spleen, pancreas, adrenals and left kidney are unremarkable Right renal cysts. Largest measures 6.4 centimeters. The prostate gland is moderately to markedly enlarged which asymmetrically abuts the base of the blad iva. Bladder wall is thickened. Six lumbar vertebra. Progression in the compression fracture of the L1 vertebral body which is marked . Moderate compression fracture T11 vertebral body which appears subacute. Moderate amount of stool within the colon IMPRESSION: Mild tree-in-bud opacities right lower lobe may indicate mild atypical pneumonia Moderate to marked prostatic enlargement which asymmetrically abuts the base of the bladder. This may represent prostatic hypertrophy. Underlying neoplasm can also have this appearance and should be cor related clinically and with appropriate lab values. Bladder wall thickening presumably secondary to a chronic bladder outlet obstruction Six lumbar vertebra. Progression in the compression fracture of the L1 vertebral body which is marked . Moderate compression fracture T11 vertebral body which appears subacute.
[2021-05-06 15:39] LABS: Urine Blood 3+ (Negative); Urine Glucose Trace (Negative); Urine Protein 3+ (Negative); Urine pH >=9.0 (5.0-7.0)
[2021-05-06 16:06] LABS: Urine Bacteria >50 /HPF (NONE SEEN); Urine Crystals Unidentified MANY (NONE SEEN); Urine RBC LOADED /HPF (NONE SEEN)
[2021-05-06] MEDS ORDERED: CEFTRIAXONE 1000 MG/VIAL ONE (16:27)
[2021-05-06] MEDS ORDERED: NA CHLORIDE 0.9% 50 ML ONE (16:27)
--- NOTE | 2021-05-06 16:31 | ER ---
Nurse's Notes [facility] Name: Andrew Soto Age: 86 yrs Sex: Male : 1935 Arrival Date: 05/06/2021 Time: 13:03 Bed 8 Private MD: Quintin Mcadams Diagnosis: Dehydration;Acute cystitis with hematuria;Pneumonia, unspecified organism Presentation: 05/06 13:21 Chief complaint: Patient's son or daughter states: blood in urine that began this ss morning. Coronavirus screen: Client denies travel out of the [place] in the last 14 days. Ebola Screen: Patient denies exposure to infectious person. Patient denies travel to an Ebola-affected area in the 21 days before illness onset. Initial Sepsis Screen: Does the patient meet any 2 criteria? No. Patient's initial sepsis screen is negative. Does the patient have a suspected source of infection? No. Patient's initial sepsis screen is negative. Risk Assessment: Do you want to hurt yourself or someone else? Patient reports no desire to harm self or others. Onset of symptoms was May 06, 2021. 13:21 Method Of Arrival: Wheelchair ss 13:21 Acuity: MEREDITH 3 ss Historical: - Allergies: 13:21 No Known Allergies; ss - PMHx: 13:34 Diabetes - NIDDM; Hypertensive disorder; jl7 - Immunization history:: Client reports receiving the 2nd dose of the Covid vaccine. - Social history:: Smoking status: Patient denies any tobacco usage or history of. Screenin:00 Abuse screen: Denies threats or abuse. Denies injuries from another. Nutritional jl7 screening: Pt's son reports decreased appetite. Tuberculosis screening: No symptoms or risk factors identified. Fall Risk IV access (20 points). Total Mckenna Fall Scale indicates High Risk Score (45 or more points). Fall prevention measures have been instituted. Side Rails Up X 2 1:1 Attendant Assigned Frequent Obs/Assessments Occuring Family Present and informed to notify staff if the need to leave the bedside As available patient and family educated on Fall Prevention Program and Strategies. Assessment: 13:30 General: Appears in no apparent distress. uncomfortable, cachectic, Behavior is calm, jl7 cooperative, appropriate for age. Pain: Denies pain. Neuro: Level of Consciousness is awake, alert. Cardiovascular: Patient's skin is warm and dry. Respiratory: Airway is patent Respiratory effort is even, unlabored, Respiratory pattern is regular, symmetrical. GI: Abdomen is flat, non-distended. : Parent/caregiver report the patient having blood in urine. Derm: Skin is dry, Skin is normal, Skin temperature is warm. 15:00 Reassessment: Patient appears in no apparent distress at this time. No changes from jl7 previously documented assessment. Patient and/or family updated on plan of care and expected duration. Pain level reassessed. 16:30 Reassessment: Hospitalist at bedside. jl7 Vital Signs: 13:21 BP 118 / 66; Resp 20; Temp 97.5(TE); Pulse Ox 98% on R/A; ss 14:30 BP 102 / 69; Pulse 83; Resp 15; Pulse Ox 93% ; jl7 15:38 BP 120 / 66; Pulse 82; Resp 14; Pulse Ox 98% ; jl7 16:38 BP 136 / 82; Pulse 77; Resp 15; Pulse Ox 99% on R/A; jl7 ED Course: 13:03 Patient arrived in ED. ds1 13:04 Quintin Mcadams DO is Private Physician. ds1 13:09 Carmine Wolff, CHARLES is Primary Nurse. jl7 13:11 Shani Parekh FNP-C is [facility]. kb 13:11 Cordell Galvan MD is Attending Physician. kb 13:20 Patient has correct armband on for positive identification. Placed in gown. Bed in low jl7 position. Call light in reach. Side rails up X2. monitor tech on. Pulse ox on. NIBP on. Warm blanket given. 13:21 Triage completed. ss 13:21 Arm band placed on right wrist. ss 14:00 Initial lab(s) drawn, by ks, sent to lab. Inserted saline lock: 22 gauge in left jl7 forearm, using aseptic technique. Blood collected. 15:00 Straight cath inserted, using sterile technique, 16 Fr. Specimen obtained. Returned jl7 bloody urine. Patient tolerated well. 15:09 CT Chest, Abdomen, Pelvis - W/Contrast In Process Unspecified. EDMS 16:31 Arslan Javier MD is Hospitalizing Provider. kb 18:04 No provider procedures requiring assistance completed. Patient admitted, IV remains in jl7 place. intact, No redness/swelling at site. Administered Medications: 17:12 Drug: Rocephin (cefTRIAXone) 1 grams Route: IV; Rate: calculated rate; Site: left jl7 forearm; 17:20 Follow up: Response: No adverse reaction; IV Status: Completed infusion jl7 17:12 Drug: NS 0.9% 1000 ml Route: IV; Rate: 100 ml/hr; Site: left forearm; jl7 18:04 Follow up: IV Status: Infusion continued upon admission jl7 Outcome: 16:31 Decision to Hospitalize by Provider. kb 18:04 Admitted to Tele accompanied by tech, family with patient, via stretcher, room 217, [facility] with chart, Report called to CHARLES Presley 18:04 Condition: stable 18:04 Discharge instructions given to patient, family, Instructed on the need for admit, Demonstrated understanding of instructions. 18:27 Patient left the ED. [facility] Signatures: Dispatcher [employer] EDMS Shani Parekh, SEAN LIGHT RAIL OPERATOR-Nubia Joaquin ds1 Ly Green, CHARLES SOTO Carmine Wolff RN RN jl7
--- NOTE | 2021-05-06 16:32 | EDPHYS ---
Physician Documentation [facility] Name: Andrew Soto Age: 86 yrs Sex: Male : 1935 Arrival Date: 05/06/2021 Time: 13:03 Bed 8 Private MD: Wander Mcadamsh ED Physician Cordell Galvan HPI: 05/06 16:05 This 86 yrs old Male presents to ER via Wheelchair with complaints of Blood In kb Urine, Weight Loss. 16:05 The patient presents with urinary symptoms, hematuria. Onset: The symptoms/episode kb began/occurred today. Modifying factors: The symptoms are alleviated by nothing, the symptoms are aggravated by urinating. Associated signs and symptoms: Pertinent positives: hematuria, Pertinent negatives: abdominal pain, constipation, diarrhea, dysuria, fever, nausea, vomiting. Severity of symptoms: At their worst the symptoms were moderate, in the emergency department the symptoms are unchanged. The patient has not experienced similar symptoms in the past. The patient has not recently seen a physician. Son states pt has had increased weakness, decreased appetite and weight loss over the past month. Also reports pt has developed bedsores over the last month. Came in today because pt had blood in his urine. . Historical: - Allergies: 13:21 No Known Allergies; ss - PMHx: 13:34 Diabetes - NIDDM; Hypertensive disorder; jl7 - Immunization history:: Client reports receiving the 2nd dose of the Covid vaccine. - Social history:: Smoking status: Patient denies any tobacco usage or history of. ROS: 16:05 Cardiovascular: Negative for chest pain, palpitations, and edema. kb 16:05 Constitutional: Positive for poor PO intake, weight loss. 16:05 : Positive for hematuria. 16:05 Neuro: Positive for weakness. 16:05 All other systems are negative. Exam: 16:05 Head/Face: Normocephalic, atraumatic. Cardiovascular: Regular rate and rhythm with a kb normal S1 and S2. No gallops, murmurs, or rubs. No pulse deficits. Respiratory: Respirations even and unlabored. No increased work of breathing. Talking in full sentences Abdomen/GI: Soft, non-tender. No distention Skin: Warm, dry with normal turgor. Normal color. MS/ Extremity: Pulses equal, no cyanosis. Neurovascular intact. Full, normal range of motion. 16:05 Constitutional: The patient appears alert, awake, emaciated, frail. 16:05 Skin: stage 2 bedsores, approx dime sized, x4 to buttocks with no signs of infection. 16:05 Neuro: Exam negative for acute changes, Gait: needs assistance. Vital Signs: 13:21 BP 118 / 66; Resp 20; Temp 97.5(TE); Pulse Ox 98% on R/A; ss 14:30 BP 102 / 69; Pulse 83; Resp 15; Pulse Ox 93% ; jl7 15:38 BP 120 / 66; Pulse 82; Resp 14; Pulse Ox 98% ; jl7 16:38 BP 136 / 82; Pulse 77; Resp 15; Pulse Ox 99% on R/A; jl7 MDM: 13:11 Patient medically screened. kb 15:52 Data reviewed: vital signs, nurses notes. Data interpreted: Pulse oximetry: on room air kb is 98 %. Interpretation: normal. 16:10 Counseling: I had a detailed discussion with the patient and/or guardian regarding: the kb historical points, exam findings, and any diagnostic results supporting the discharge/admit diagnosis, lab results, radiology results, the need for further work-up and treatment in the hospital. Physician consultation: Arslan Javier MD was contacted at 16:00, regarding admission, to the medical/surgical unit. patient's condition. 16:30 Physician consultation: Arslan Javier MD in the emergency department to see patient at kb 16:31. 05/06 13:22 Order name: Basic Metabolic Panel; Complete Time: 14:31 kb 05/06 13:22 Order name: CBC with Diff; Complete Time: 14:38 kb 05/06 13:22 Order name: LFT's; Complete Time: 14:31 kb 05/06 13:22 Order name: Magnesium; Complete Time: 14:31 kb 05/06 13:22 Order name: NT PRO-BNP; Complete Time: 14:31 kb 05/06 13:22 Order name: PT-INR; Complete Time: 15:05 kb 05/06 13:22 Order name: CT Chest, Abdomen, Pelvis - W/Contrast; Complete Time: 15:33 kb 05/06 13:22 Order name: Urine Microscopic Only; Complete Time: 16:10 kb 05/06 13:46 Order name: COVID-19 SARS RT PCR (Document "Date of Onset" if Symptomatic) vg1 05/06 15:39 Order name: Urine Dipstick-Ancillary; Complete Time: 15:44 EDPA 05/06 16:07 Order name: Urine Culture [facility] 05/06 17:09 Order name: Comprehensive Metabolic Panel [facility] 05/06 17:09 Order name: Magnesium EDPA 05/06 13:22 Order name: EKG; Complete Time: 13:22 kb 05/06 13:22 Order name: Cardiac monitoring; Complete Time: 13:47 kb 05/06 13:22 Order name: EKG - Nurse/Tech; Complete Time: 13:47 kb 05/06 13:22 Order name: IV Saline Lock; Complete Time: 13:47 kb 05/06 13:22 Order name: Labs collected and sent; Complete Time: 13:47 kb 05/06 13:22 Order name: O2 Per Protocol; Complete Time: 14:55 kb 05/06 13:22 Order name: O2 Sat Monitoring; Complete Time: 14:55 kb 05/06 13:22 Order name: Urine Dipstick-Ancillary (obtain specimen); Complete Time: 15:39 kb 05/06 14:11 Order name: Labs - recollect needed: recollect blue top/ short; Complete Time: 14:55 eb 05/06 17:04 Order name: Social Service Consult [facility] 05/06 17:09 Order name: Case Management Consult [facility] 05/06 17:09 Order name: Physical Therapy Consult [facility] 05/06 17:09 Order name: 60g Consistent Carbohydrate (ADA 1800/1999) [facility] Administered Medications: 17:12 Drug: Rocephin (cefTRIAXone) 1 grams Route: IV; Rate: calculated rate; Site: left jl7 forearm; 17:20 Follow up: Response: No adverse reaction; IV Status: Completed infusion jl 17:12 Drug: NS 0.9% 1000 ml Route: IV; Rate: 100 ml/hr; Site: left forearm; jl7 18:04 Follow up: IV Status: Infusion continued upon admission jl7 Disposition: 18:31 Co-signature as Attending Physician, Cordell Galvan MD I agree with the assessment and rn plan of care. Attestation: The patient's history, exam findings, diagnostics, and a summary of any interventions or procedures was reviewed in detail with Shani ESTRADA. Disposition Summary: 05/06/21 16:31 Hospitalization Ordered Hospitalization Status: Inpatient Admission kb Provider: Arslan Javier Location: Telemetry/MedSur (Inpatient) kb Condition: Stable kb Problem: new kb Symptoms: are unchanged kb Bed/Room Type: Standard kb Room Assignment: 217(05/06/21 17:37) dw Diagnosis - Dehydration kb - Acute cystitis with hematuria kb - Pneumonia, unspecified organism kb Forms: - Medication Reconciliation Form kb - SBAR form kb Signatures: Dispatcher [employer] EDMS Shani Parekh FNP-C FNP-Olga Haywood RN RN dw Cordell Galvan MD MD rn Smirch, Shelby, RN RN Carmine Wiley RN RN Maite Mejias Corrections: (The following items were deleted from the chart) 17:37 16:31 kb dw
--- NOTE | 2021-05-06 17:00 | P.HP ---
Certification for Inpatient Patient admitted to: Observation With expected LOS: <2 Midnights Patient will require the following post-hospital care: Home Health Services Practitioner: I am a practitioner with admitting privileges, knowledge of patient current condition, hospital course, and medical plan of care. Services: Services provided to patient in accordance with Admission requirements found in Title 42 Section 412.3 of the Code of Federal Regulations Patient History Date of Service: 05/06/21 Reason for admission: Hematuria History of Present Illness: 86-year-old male with past medical history of hypertension, diabetes mellitus, progressive anorexia with weakness worse since recent colonoscopy 6 months ago brought in by family after patient was noted with hematuria earlier today. Family state patient has been having recurrent urinary frequency but no reported dysuria. Family initially with same patient does not have history of confusion , that he appeared to be progressively more lethargic but later states patient have intermittent memory loss. Son who is primary caregiver for the patient states he has been trying to get home health care for the patient via the primary care physician. Patient was previously diagnosed with sacral decubitus ulcers although so states he has been doing frequent turning. He has had significant weight loss of over 30 pounds since the last 3 months. Of note patient had a colonoscopy 6 months ago that was reportedly poor prep and plan was for patient to have a repeat but family states due to patient confusion after the first procedure decision was made for patient not to have repeat colonoscopy. There is no report of cancer history. There is no history of tobacco use. No reported cough. On arrival in the ED patient was stable vitals and satting at 98 on room air but a poor historian with poor speech flow. CT of the abdomen shows evidence of thickened bladder with significantly enlarged prostate as well as a tree-in-bud appearance of the right lower lobe consistent with right lower lobe pneumonia. Patient has been admitted for UTI with pneumonia Allergies No Known Allergies Allergy (Verified 12/01/20 09:34) Home Medications: Lisinopril [Zestril] 5 mg PO DAILY 10/30/20 Metformin HCl 1,000 mg PO BIDWM 10/30/20 Cyanocobalamin (Vitamin B-12) [Vitamin B-12] 5,000 mcg PO DAILY 12/01/20 Spectravite 1 tab PO DAILY 12/01/20 - Past Medical/Surgical History Diabetic: Yes -: DM -: Hypertension -: kidney stones -: Hernia repair over 50 years ago Psychosocial/ Personal History: - Social History Smoking Status: Never smoker Alcohol use: No CD- Drugs: No Caffeine use: Yes Place of Residence: Home Review of Systems is unable to be obtained Physical Examination - Physical Exam General: Cooperative, Cachectic, Delirious HEENT: Atraumatic, Normocephalic, PERRLA Neck: 2+ carotid pulse no bruit, JVD not distended Respiratory: Clear to auscultation bilaterally, Normal air movement Cardiovascular: No edema, Normal pulses, Regular rate/rhythm, Normal S1 S2 Gastrointestinal: Normal bowel sounds, Soft and benign, Non-distended Musculoskeletal: No clubbing, No swelling Integumentary: Other (discrete stage II sacral decubitus) Neurological: Other (poor speech flow , unable to tell day and month but unsure of year ), Dementia - Studies Laboratory Data (last 24 hrs) 05/06/21 14:49: PT 11.4, INR 0.99 05/06/21 14:03: WBC 9.30, Hgb 14.4, Hct 43.4, Plt Count 421 H 05/06/21 14:03: Sodium 145, Potassium 3.7, BUN 33 H, Creatinine 0.51 L, Glucose 120 H, Magnesium 1.9, Total Bilirubin 1.1 H, AST 15, ALT 18, Alkaline Phos phatase 88 Assessment and Plan - Problems (Diagnosis) (1) UTI (urinary tract infection) Current Visit: Yes Status: Acute (2) Anorexia Current Visit: Yes Status: Acute (3) Enlarged prostate Current Visit: No Status: Acute (4) Compression fracture Current Visit: No Status: Chronic (5) HTN (hypertension) Current Visit: No Status: Chronic Qualifiers: Hypertension type: essential hypertension Qualified Code(s): I10 - Essential (primary) hypertension (6) T2DM (type 2 diabetes mellitus) Current Visit: No Status: Chronic Qualifiers: Diabetes mellitus long winder tender insulin use: without nursing home use Diabetes mellitus complication status: without complication Qualified Code(s): E11.9 - Type 2 diabetes mellitus without complications - Plan Urinary tract infection Underlying BPHrule out prostate cancer 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 intake can increase Possibility of underlying malignancy given gross hematuria as reported, possibility of needing intervention including cystoscopy discussed with family they do not want to proceed with any aggressive intervention at this time -Advance directive discussed with family they prefer full code -DVT prophylaxis that given hematuria will do SCDs only -Presumed dementia with confusion, do Geodon as needed for agitation - Advance Directives Does patient have a Living Will: No Does patient have a Durable POA for Healthcare: No Physician Review: Patient Assessed, Agree with Above Assessment and Plan Critical Care: No Time Spent Managing Pts Care (In Minutes): 65
[2021-05-06] MEDS ORDERED: ALBUTEROL 2.5 MG/3 ML NEB SOL NEB PRN (17:04)
[2021-05-06] MEDS ORDERED: MORPHINE 2 MG/ML SYR IV PRN (17:04)
[2021-05-06] MEDS ORDERED: ONDANSETRON 4 MG/2 ML VIAL IV PRN (17:04)
[2021-05-06] MEDS ORDERED: ACETAMINOPHEN 500 MG TAB PO PRN (17:04)
[2021-05-06] MEDS ORDERED: LORAZEPAM 0.5 MG TABLET PO PRN (17:06)
[2021-05-06] MEDS ORDERED: HYDRALAZINE HCL 20 MG/ML VIAL IV PRN (17:06)
[2021-05-06] MEDS ORDERED: NA CHLORIDE 0.9% 1,000 ML ONE (17:06)
[2021-05-06] MEDS ORDERED: guaiFENesin 100 MG/5 ML UCUP PO PRN (17:06)
[2021-05-06] MEDS ORDERED: MEGESTROL 400 MG/10 ML UCUP PO SCH (17:07)
[2021-05-06] MEDS ORDERED: WATER FOR INJ,STERILE 10 ML IM PRN (17:08)
[2021-05-06] MEDS ORDERED: ZIPRASIDONE MESYLA 20 MG/VIAL IM PRN (17:08)
[2021-05-06] MEDS ORDERED: Ringers Lactate 1,000 ML IV SCH (18:00)
[2021-05-06 19:59] VITALS: BMI 15.6
[2021-05-06] MEDS: INSULIN -REGULAR HUMAN 50 UNIT/0.5 ML ML SQ SCH (20:22)
[2021-05-06] MEDS ORDERED: MIRTAZAPINE 15 MG TAB PO SCH (21:00)
[2021-05-07] MEDS: INSULIN -REGULAR HUMAN 50 UNIT/0.5 ML ML SQ SCH ×4 (07:30→20:21)
[2021-05-07] MEDS: ZINC SULFATE 220 MG CAP PO SCH (08:46)
[2021-05-07] MEDS: CEFTRIAXONE 1,000 MG in NA CHLORIDE 0.9% 50 ML IVPB SCH (08:47)
[2021-05-07] MEDS: FOLIC ACID 1 MG TABLET PO SCH (08:51)
[2021-05-07] MEDS: THIAMINE HCL 100 MG TABLET PO SCH (08:51)
[2021-05-07] MEDS ORDERED: INFLUENZA VACCINE (for 6+ mo) 0.5 ML DOSE IMVAC ONE (12:00)
--- NOTE | 2021-05-07 12:57 | RAD REPORT ---
EXAM DESCRIPTION: US - Urinary Bladder - 05/07/2021 12:18 pm CLINICAL HISTORY: hematuria, UTI COMPARISON: Chest Abdomen Pelvis W Cont dated 05/06/2021 FINDINGS: Heterogeneous thickening seen along the posterior bladder wall. Doppler evaluation shows b lood flow within this soft tissue. This is the correlate to the thickened or nodular appearance to th e posterior wall on the prior study. Remainder of the bladder wall has a normal thickness. Finding is concerning for a bladder wall mass. Echogenic debris is seen within the bladder lumen. No large blad iva stone seen. IMPRESSION: Soft tissue thickening along the posterior bladder wall is seen as a correlate to the CT finding. There appears to be blood flow within this soft tissue believed to be true wall thickening or mass ra ther than artifact of contracted bladder.
--- NOTE | 2021-05-07 15:31 | P.PN ---
Subjective Date of Service: 05/07/21 Primary Care Provider: Dr. Mcadams Chief Complaint: Hematuria Subjective: Other (Patient severely malnourished. Son at bedside) Physical Examination - Vital Signs Temperature: 97.1 F Blood Pressure: 131/63 Pulse: 74 Respirations: 16 Pulse Ox (%): 95 - Studies Laboratory Data (last 24 hrs) 05/06/21 18:54: Magnesium 1.7 L Microbiology Data (last 24 hrs): 05/07/21 00:35 Wound - Coccyx Gram Stain - Final Assessment & Plan Discharge Plan: Home Plan to discharge in: Greater than 2 days Physician Review Additional Text: COVID: Negative CT scan: COMPARISON: October 2020 TECHNIQUE: Computed axial tomography of the chest, abdomen and pelvis was obtained. 100 cc Isovue-300 was administered intravenously. Oral contrast was not requested. This limits evaluation of bowel. All CT scans are performed using dose optimization technique as appropriate and may include automated exposure control or mA/KV adjustment according to patient size. FINDINGS: Mild tree-in-bud opacities right lower lobe. A pleural effusion is not present. A pericardial effusion is not seen No mediastinal or hilar lymphadenopathy The liver, spleen, pancreas, adrenals and left kidney are unremarkable Right renal cysts. Largest measures 6.4 centimeters. The prostate gland is moderately to markedly enlarged which asymmetrically abuts the base of the bladder. Bladder wall is thickened. Six lumbar vertebra. Progression in the compression fracture of the L1 vertebral body which is marked. Moderate compression fracture T11 vertebral body which appears subacute. Moderate amount of stool within the colon IMPRESSION: Mild tree-in-bud opacities right lower lobe may indicate mild atypical pneumonia Moderate to marked prostatic enlargement which asymmetrically abuts the base of the bladder. This may represent prostatic hypertrophy. Underlying neoplasm can also have this appearance and should be correlated clinically and with appropriate lab values. Bladder wall thickening presumably secondary to a chronic bladder outlet obstruction Six lumbar vertebra. Progression in the compression fracture of the L1 vertebral body which is marked. Moderate compression fracture T11 vertebral body which appears subacute. Bladder US: COMPARISON: Chest Abdomen Pelvis W Cont dated 05/06/2021 FINDINGS: Heterogeneous thickening seen along the posterior bladder wall. Doppler evaluation shows blood flow within this soft tissue. This is the correlate to the thickened or nodular appearance to the posterior wall on the prior study. Remainder of the bladder wall has a normal thickness. Finding is concerning for a bladder wall mass. Echogenic debris is seen within the bladder lumen. No large bladder stone seen. IMPRESSION: Soft tissue thickening along the posterior bladder wall is seen as a correlate to the CT finding. There appears to be blood flow within this soft tissue believed to be true wall thickening or mass rather than artifact of contracted bladder. Physical exam: General: Cooperative, Cachectic, Delirious. Patient appears severely malnourished HEENT: Respiratory: Clear to auscultation bilaterally, Normal air movement Cardiovascular: No edema, Normal pulses, Regular rate/rhythm, Normal S1 S2 Gastrointestinal: Normal bowel sounds, Soft and benign, Non-distended Musculoskeletal: No clubbing, No swelling Integumentary: Other (discrete stage II sacral decubitus) severe muscle wasting to the upper and lower extremities Neurological: Patient alert to commands. Possible underlying dementia Impression: Severe anorexia with severe protein malnutrition UTI Hypertension Diabetes mellitus type 2 with hypoglycemia Possible underlying dementia Stage II sacral decubitus Plan: Continue antibiotic therapy for UTI. Will obtain bladder ultrasound to further evaluate as there was some history of hematuria. If hematuria persists patient will need catheter with possible further intervention. Family did not want any aggressive intervention. We will check PSA to further evaluate for possible underlying cancer due to his severe malnutrition. We will change IV fluids to D5W due to hypoglycemia We will try to obtain more history from PCP. Dietitian consulted for evaluation of his current nutritional status. Spoke at length with son concerning plan of care. Son would consider possible hospice if his condition declines. I explained to the son that the patient appears severely malnourished. This appears to be chronic. Will reassess again tomorrow. May need to readdress advance directives and possible hospice. Advanced directives: Family wants home health and physical therapy. Possible hospice if his condition continues to decline CODE STATUS: Currently full code DVT prophylaxis: Lovenox Time Spent Managing Pts Care (In Minutes): 55
[2021-05-07] MEDS: D5W 1,000 ML IV SCH (16:25)
[2021-05-07 17:12] LABS: Absolute Lymphocytes (CBC) 1.4 K/uL (0.7-4.9); Basophils % 0.3 % (0-1.3); Hematocrit 34.6 % (39.6-49.0); Lymphocytes % 12.9 % (15.3-44.8); MPV 7.1 fL (7.6-11.3)
[2021-05-07 17:36] LABS: ALT/SGPT 15 U/L (12-78); AST/SGOT 11 U/L (15-37); Albumin 2.3 g/dL (3.4-5.0); Alkaline Phosphatase 72 U/L (45-117); BUN Blood Urea Nitrogen 28 mg/dL (7-18); Bicarbonate 24 mmol/L (21-32); Bilirubin Total 0.6 mg/dL (0.2-1.0); Glucose Level 157 mg/dL (74-106); Magnesium 1.7 mg/dL (1.8-2.4); Potassium 3.7 mmol/L (3.5-5.1); Sodium Level 143 mmol/L (136-145)
[2021-05-07] MEDS: GLUCERNA SHAKE 237 ML CAN PO SCH (20:08)
[2021-05-07 22:59] VITALS: O2SAT 98
[2021-05-08] MEDS: D5W 1,000 ML IV SCH ×2 (05:38→21:17)
--- NOTE | 2021-05-08 06:12 | P.PN ---
Subjective Date of Service: 05/08/21 Primary Care Provider: Dr. Mcadams Chief Complaint: Hematuria Subjective: Improving, Doing well Physical Examination - Vital Signs Temperature: 98.3 F Blood Pressure: 126/61 Pulse: 86 Respirations: 18 Pulse Ox (%): 97 - Studies Microbiology Data (last 24 hrs): 05/07/21 00:35 Wound - Coccyx Gram Stain - Final Assessment & Plan Discharge Plan: Other (Home with home health versus skilled placement) Plan to discharge in: 24 Hours Physician Review Additional Text: COVID: Negative CT scan: COMPARISON: October 2020 TECHNIQUE: Computed axial tomography of the chest, abdomen and pelvis was obtained. 100 cc Isovue-300 was administered intravenously. Oral contrast was not requested. This limits evaluation of bowel. All CT scans are performed using dose optimization technique as appropriate and may include automated exposure control or mA/KV adjustment according to patient size. FINDINGS: Mild tree-in-bud opacities right lower lobe. A pleural effusion is not present. A pericardial effusion is not seen No mediastinal or hilar lymphadenopathy The liver, spleen, pancreas, adrenals and left kidney are unremarkable Right renal cysts. Largest measures 6.4 centimeters. The prostate gland is moderately to markedly enlarged which asymmetrically abuts the base of the bladder. Bladder wall is thickened. Six lumbar vertebra. Progression in the compression fracture of the L1 vertebral body which is marked. Moderate compression fracture T11 vertebral body which a ppears subacute. Moderate amount of stool within the colon IMPRESSION: Mild tree-in-bud opacities right lower lobe may indicate mild atypical pneumonia Moderate to marked prostatic enlargement which asymmetrically abuts the base of the bladder. This may represent prostatic hypertrophy. Underlying neoplasm can also have this appearance and should be correlated clinically and with appropriate lab values. Bladder wall thickening presumably secondary to a chronic bladder outlet obstruction Six lumbar vertebra. Progression in the compression fracture of the L1 vertebral body which is marked. Moderate compression fracture T11 vertebral body which appears subacute. Bladder US: COMPARISON: Chest Abdomen Pelvis W Cont dated 05/06/2021 FINDINGS: Heterogeneous thickening seen along the posterior bladder wall. Doppler evaluation shows blood flow within this soft tissue. This is the correlate to the thickened or nodular appearance to the posterior wall on the prior study. Remainder of the bladder wall has a normal thickness. Finding is concerning for a bladder wall mass. Echogenic debris is seen within the bladder lumen. No large bladder stone seen. IMPRESSION: Soft tissue thickening along the posterior bladder wall is seen as a correlate to the CT finding. There appears to be blood flow within this soft tissue believed to be true wall thickening or mass rather than artifact of contracted bladder. Physical exam: General: Cooperative, Cachectic, Delirious. Patient appears severely malnourished. Patient alert and cooperative. HEENT: Neck supple Respiratory: Clear to auscultation bilaterally, Normal air movement Cardiovascular: No edema, Normal pulses, Regular rate/rhythm, Normal S1 S2 Gastrointestinal: Normal bowel sounds, Soft and benign, Non-distended Musculoskeletal: No clubbing, No swelling Integumentary: Other (discrete stage II sacral decubitus) severe muscle wasting to the upper and lower extremities Neurological: Patient alert to commands. Possible underlying dementia Impression: Severe anorexia with severe protein malnutrition UTI, urine culture positive for E. coli. Hypertension Diabetes mellitus type 2 with hypoglycemia Possible underlying dementia Stage II sacral decubitus Plan: Patient continues to improve. Patient more alert and active. Physical therapy to assess ambulation. Await recommendations. Spoke with at length concerning plan of care. Consider home healthphysical therapy versus skilled placement. Will confirm with family today. We will transition to oral medication likely in the next 24 hours. Hematuria appears improved. We will continue to monitor this closely. PSA within normal range. Continue with dietary recommendations to increase nutrition. Await recommendations by physical therapy. We will check lab today including hemoglobin A1c, TSH and free T4 to evaluate his malnutrition. Hold Metformin at this time. Patient may not require this at discharge. Continue to hold blood pressure medicationlisinopril. Patient may not require blood pressure medication at discharge. Possible underlying dementia. Will need to investigate further. Advanced directives: Family wants home health and physical therapy. Possible hospice if his condition continues to decline CODE STATUS: Currently full code DVT prophylaxis: VODECLICnox Time Spent Managing Pts Care (In Minutes): 55
[2021-05-08] MEDS: INSULIN -REGULAR HUMAN 50 UNIT/0.5 ML ML SQ SCH ×4 (07:30→20:39)
[2021-05-08] MEDS: GLUCERNA SHAKE 237 ML CAN PO SCH ×3 (09:00→21:17)
[2021-05-08] MEDS: ZINC SULFATE 220 MG CAP PO SCH (09:03)
[2021-05-08] MEDS: CEFTRIAXONE 1,000 MG in NA CHLORIDE 0.9% 50 ML IVPB SCH (09:03)
[2021-05-08] MEDS: THIAMINE HCL 100 MG TABLET PO SCH (09:03)
[2021-05-08] MEDS: FOLIC ACID 1 MG TABLET PO SCH (09:03)
[2021-05-08 12:05] LABS: Absolute Lymphocytes (CBC) 1.6 K/uL (0.7-4.9); Basophils % 0.2 % (0-1.3); Hematocrit 36.1 % (39.6-49.0); Lymphocytes % 17.4 % (15.3-44.8); RBC Red Blood Cell Count 3.95 M/uL (4.33-5.43)
[2021-05-08 12:24] LABS: BUN Blood Urea Nitrogen 17 mg/dL (7-18); Bicarbonate 24 mmol/L (21-32); Glucose Level 155 mg/dL (74-106); Potassium 3.6 mmol/L (3.5-5.1); Sodium Level 137 mmol/L (136-145)
--- NOTE | 2021-05-09 06:12 | P.PN ---
Subjective Date of Service: 05/09/21 Primary Care Provider: Dr. Mcadams Chief Complaint: Hematuria Subjective: Improving, Doing well Physical Examination - Vital Signs Temperature: 97 F Blood Pressure: 150/68 Pulse: 97 Respirations: 17 Pulse Ox (%): 96 - Studies Microbiology Data (last 24 hrs): 05/06/21 15:35 Clean Catch Urine Arnold Count - Final >100,000 CFU/ML. 05/06/21 15:35 Clean Catch Urine - Final Escherichia Coli Assessment & Plan Discharge Plan: Other (Home with home health versus skilled placement then long- term care) Plan to discharge in: 24 Hours Physician Review Additional Text: COVID: Negative CT scan: COMPARISON: October 2020 TECHNIQUE: Computed axial tomography of the chest, abdomen and pelvis was obtained. 100 cc Isovue-300 was administered intravenously. Oral contrast was not requested. This limits evaluation of bowel. All CT scans are performed using dose optimization technique as appropriate and may include automated exposure control or mA/KV adjustment according to patient size. FINDINGS: Mild tree-in-bud opacities right lower lobe. A pleural effusion is not present. A pericardial effusion is not seen No mediastinal or hilar lymphadenopathy The liver, spleen, pancreas, adrenals and left kidney are unremarkable Right renal cysts. Largest measures 6.4 centimeters. The prostate gland is moderately to markedly enlarged which asymmetrically abuts the base of the bladder. Bladder wall is thickened. Six lumbar vertebra. Progression in the compression fracture of the L1 vertebral body which is marked. Moderate compression fracture T11 vertebral body which appears subacute. Moderate amount of stool within the colon IMPRESSION: Mild tree-in-bud opacities right lower lobe may indicate mild atypical pneumonia Moderate to marked prostatic enlargement which asymmetrically abuts the base of the bladder. This may represent prostatic hypertrophy. Underlying neoplasm can also have this appearance and should be correlated clinically and with appropriate lab values. Bladder wall thickening presumably secondary to a chronic bladder outlet obstruction Six lumbar vertebra. Progression in the compression fracture of the L1 vertebral body which is marked. Moderate compression fracture T11 vertebral body which appears subacute. Bladder US: COMPARISON: Chest Abdomen Pelvis W Cont dated 05/06/2021 FINDINGS: Heterogeneous thickening seen along the posterior bladder wall. Doppler evaluation shows blood flow within this soft tissue. This is the correlate to the thickened or nodular appearance to the posterior wall on the prior study. Remainder of the bladder wall has a normal thickness. Finding is concerning for a bladder wall mass. Echogenic debris is seen within the bladder lumen. No large bladder stone seen. IMPRESSION: Soft tissue thickening along the posterior bladder wall is seen as a correlate to the CT finding. There appears to be blood flow within this soft tissue believed to be true wall thickening or mass rather than artifact of contracted bladder. Physical exam: General: Cooperative, Cachectic, Delirious. Patient appears severely malnourished. Patient alert and cooperative. HEENT: Neck supple Respiratory: Clear to auscultation bilaterally, Normal air movement Cardiovascular: No edema, Normal pulses, Regular rate/rhythm, Normal S1 S2 Gastrointestinal: Normal bowel sounds, Soft and benign, Non-distended Musculoskeletal: No clubbing, No swelling Integumentary: Other (discrete stage II sacral decubitus) severe muscle wasting to the upper and lower extremities Neurological: Patient alert to commands. Possible underlying dementia Impression: Severe anorexia with severe protein malnutrition UTI, urine culture positive for E. coli. Hypertension Diabetes mellitus type 2 with hypoglycemia Possible underlying dementia with failure to thrive Stage II sacral decubitus Plan: Patient continues to slowly improve. Continue with physical therapy and Occupational Therapy. We will transition IV antibiotic therapy to Augmentin 500 mg 1 pill twice daily for UTI. Urine culture positive for E. coli. UTI prevention will need to be continued. Blood pressure slightly elevated today. Will start carvedilol 3.125 mg 1 pill twice daily to maintain blood pressure. Hemoglobin A1c 5.3. Blood sugar well controlled. No need for Metformin. Continue sliding scale and Accu-Cheks. Will discontinue IV fluids. Encourage oral intake. Continue with dietary recommendations. Continue with supplementation. Continue with folic acid and thiamine. Patient likely with underlying dementia and possible failure to thrive. Sacral decubitus stage II. Wound care consulted to help with treatment. Case discussed in detail with yesterday. desires skilled placement then long-term care. Is getting difficult for her to take care of the patient. Also discussed CODE STATUS yesterday. Patient now DNR. Case discussed in detail with son this morning. Son was hoping to take patient home with home health. He understands the situation at home. He currently lives with his mom and dad. He also understands that his mom is not able to take care of him. also with possible dementia. Son will discuss further with other family members and mom to discuss plan of care again. This includes home health versus skilled placement then to long-term care. If the decision is to go with home health then will plan for discharge today. If not we will continue to pursue skilled placement. Social work to help with this and provide more information so that they can make a final decision. Son also understands that patient likely has failure to thrive with his underlying dementia. If the decision is to go with home health and his condition worsens then he can consider hospice in the future. Advanced directives: As above CODE STATUS: DNR DVT prophylaxis: Lovenox Time Spent Managing Pts Care (In Minutes): 55
[2021-05-09] MEDS: INSULIN -REGULAR HUMAN 50 UNIT/0.5 ML ML SQ SCH ×2 (07:30→11:30)
[2021-05-09] MEDS: FOLIC ACID 1 MG TABLET PO SCH (08:21)
[2021-05-09] MEDS: ZINC SULFATE 220 MG CAP PO SCH (08:21)
[2021-05-09] MEDS: THIAMINE HCL 100 MG TABLET PO SCH (08:22)
[2021-05-09] MEDS: GLUCERNA SHAKE 237 ML CAN PO SCH (08:22)
[2021-05-09] MEDS ORDERED: MAGNESIUM CHLORIDE 64 MG TAB PO SCH (09:00)
[2021-05-09] MEDS ORDERED: AMOX/K CLAV 500 MG TAB PO SCH (09:00)
--- NOTE | 2021-05-09 11:18 | P.DS ---
Admission Date: 05/07/21 Discharge Date: 05/09/21 Primary Care Provider: Dr. Mcadams Disposition: DC HOME/HOME HEALTH CARE Discharge Condition: GOOD Reason for Admission: Hematuria Consultations: none Procedures: COVID: Negative CT scan: COMPARISON: October 2020 TECHNIQUE: Computed axial tomography of the chest, abdomen and pelvis was obtained. 100 cc Isovue-300 was administered intravenously. Oral contrast was not requested. This limits evaluation of bowel. All CT scans are performed using dose optimization technique as appropriate and may include automated exposure control or mA/KV adjustment according to patient size. FINDINGS: Mild tree-in-bud opacities right lower lobe. A pleural effusion is not present. A pericardial effusion is not seen No mediastinal or hilar lymphadenopathy The liver, spleen, pancreas, adrenals and left kidney are unremarkable Right renal cysts. Largest measures 6.4 centimeters. The prostate gland is moderately to markedly enlarged which asymmetrically abuts the base of the bladder. Bladder wall is thickened. Six lumbar vertebra. Progression in the compression fracture of the L1 vertebral body which is marked. Moderate compression fracture T11 vertebral body which appears subacute. Moderate amount of stool within the colon IMPRESSION: Mild tree-in-bud opacities right lower lobe may indicate mild atypical pneumonia Moderate to marked prostatic enlargement which asymmetrically abuts the base of the bladder. This may represent prostatic hypertrophy. Underlying neoplasm can also have this appearance and should be correlated clinically and with appropriate lab values. Bladder wall thickening presumably secondary to a chronic bladder outlet obstruction Six lumbar vertebra. Progression in the compression fracture of the L1 vertebral body which is marked. Moderate compression fracture T11 vertebral body which appears subacute. Bladder US: COMPARISON: Chest Abdomen Pelvis W Cont dated 05/06/2021 FINDINGS: Heterogeneous thickening seen along the posterior bladder wall. Doppler evaluation shows blood flow within this soft tissue. This is the correlate to the thickened or nodular appearance to the posterior wall on the prior study. Remainder of the bladder wall has a normal thickness. Finding is concerning for a bladder wall mass. Echogenic debris is seen within the bladder lumen. No large bladder stone seen. IMPRESSION: Soft tissue thickening along the posterior bladder wall is seen as a correlate to the CT finding. There appears to be blood flow within this soft tissue believed to be true wall thickening or mass rather than artifact of contracted bladder. Physical exam: General: Cooperative, Cachectic, Delirious. Patient appears severely malnourished. Patient alert and cooperative. HEENT: Neck supple Respiratory: Clear to auscultation bilaterally, Normal air movement Cardiovascular: No edema, Normal pulses, Regular rate/rhythm, Normal S1 S2 Gastrointestinal: Normal bowel sounds, Soft and benign, Non-distended Musculoskeletal: No clubbing, No swelling Integumentary: Other (discrete stage II sacral decubitus) severe muscle wasting to the upper and lower extremities Neurological: Patient alert to commands. Possible underlying dementia Medical Problem List: Severe anorexia with severe protein malnutrition UTI, urine culture positive for E. coli Hypertension Diabetes mellitus type 2 with hypoglycemia Possible underlying dementia with failure to thrive Stage II sacral decubitus Compression fracture L1 and moderate compression fracture T11 likely underlying osteoporosis History of vitamin B12 deficiency Brief History of Present Illness: 86-year-old male with past medical history of hypertension, diabetes mellitus, progressive anorexia with weakness. There was some report of some dysuria, urinary frequency and hematuria. Slight confusion also noted. Patient found to have UTI. Sacral decubitus ulcer was identified this is likely related to his malnutrition. Family reports colonoscopy 6 months ago. Since that time he has had poor nutrition. No evidence of cancer in the past. No tobacco history. Hospital Course: Patient presented with increased weakness, anorexia and dysuria. Some hematuria also noted. Patient was found to have a UTI. Patient with severe anorexia and severe protein malnutrition. Patient was admitted for treatment. Patient improved with IV fluids and antibiotic treatment. UTI was identified with E. coli noted on urine culture. Patient was transitioned to oral medicationLevaquin 500 mg daily. No evidence of cancer on CT scan. PSA within normal range. At discharge patient will continue with Levaquin 500 mg daily for 5 more days. UTI prevention education provided. A lengthy discussion concerning plan of care and advanced directives were addressed with son and prior to discharge. After extensive discussion, patient remains DO NOT RESUSCITATE. Son will take care of patient at home instead of patient going to skilled placement then eventually to long-term care which the mother had desired. Arrangements for home health at home will be arranged. Son will continue with caregiver duties. If his condition continues to decline with increased failure to thrive and son may think about hospice in the future. This can be further addressed and evaluated by his PCP or home health. As mentioned above patient with severe anorexia and severe protein malnutrition. This has contributed to a stage II sacral decubitus ulcer. Wound care consulted to help with education on treatment. Son will continue with treatment of decubitus ulcer. Wound culture was positive for gram-negative rods likely E. coli. Patient will continue with Levaquin 500 mg daily for 5 more days. Patient will continue with wound care as directed by wound care team. Patient will need to be moved every couple of hours to prevent pressure ulcers. Patient with hypertension. Medications have been adjusted. Patient previously on lisinopril. This was discontinued. Patient now on carvedilol. At discharge patient will continue with carvedilol 3.125 mg 1 pill twice daily. Recommend to maintain blood pressure less than 130/80. Hold if blood pressure systolic less than 110. Further adjustment can be done by his PCP. Patient with diabetes mellitus type 2. Initial hypoglycemia noted because of malnutrition. This has improved. Hemoglobin A1c 5.3. Patient previously on Metformin. No need for Metformin at discharge. Patient will continue with diet control. Because of his malnutrition patient will continue with supplemental nutrition 1 can 3 times a day. Maintain blood sugar less than 140 fasting and less than 200 after meals. If blood sugar remains above 200 consider restarting Metformin at a low dose. This can be done with the help of his PCP. For now no Metformin at discharge. Recommend to recheck hemoglobin A1c every 3 months to monitor his progress. Follow-up with PCP to further adjust. Patient with history of vitamin B12 deficiency. At discharge patient will continue with vitamin B12 supplementation daily. Patient will also continue with folic acid 1 mg daily and thiamine 100 mg daily. Suspect underlying dementia. Also with failure to thrive with severe malnutrition as mentioned above. No clear etiology to his severe malnutrition and failure to thrive but likely may be related to underlying dementia. Continue with supplementation 1 can 3 times a day. Encourage oral intake at least 3 times a day. Continue with folic acid and thiamine as mentioned above. Consider neurology evaluation as an outpatient to further evaluate and address. If his condition continues to decline consider hospice in the future. CT scan also revealed compression fracture of L1 and moderate compression fracture to T11. Patient likely with underlying osteoporosis especially with his malnutrition. This can be further addressed by his PCP. Patient may take Tylenol as needed for pain. Fall precautions in place. Continue physical therapy at home. Vital Signs/Physical Exam: Temp Pulse Resp BP Pulse Ox 98.7 F 91 H 16 133/78 96 05/09/21 08:00 05/09/21 08:00 05/09/21 08:00 05/09/21 08:00 05/09/21 07:48 General: Alert, In no apparent distress, Cooperative, Other (Suspect underlying dementia) HEENT: Other (Muscle wasting noted) Neck: Supple Respiratory: Clear to auscultation bilaterally Cardiovascular: Normal pulses, Regular rate/rhythm Musculoskeletal: Other (Muscle wasting noted throughout. Patient appears severely malnourished.) Integumentary: Other (Patient with sacral decubitus) Neurological: Normal speech, Normal strength at 5/5 x4 extr, Normal tone, Dementia (Suspect underlying dementia) Laboratory Data at Discharge: WBC 9.00 K/uL (4.3-10.9) D 05/08/21 11:52 Hgb 12.0 g/dL (13.6-17.9) L 05/08/21 11:52 Hct 36.1 % (39.6-49.0) L 05/08/21 11:52 Plt Count 331 K/uL (152-406) 05/08/21 11:52 PT 11.4 SECONDS (9.5-12.5) 05/06/21 14:49 INR 0.99 05/06/21 14:49 Sodium 137 mmol/L (136-145) 05/08/21 11:52 Potassium 3.6 mmol/L (3.5-5.1) 05/08/21 11:52 BUN 17 mg/dL (7-18) 05/08/21 11:52 Creatinine 0.40 mg/dL (0.55-1.3) L 05/08/21 11:52 Glucose 155 mg/dL (74-106) H 05/08/21 11:52 Magnesium 1.6 mg/dL (1.8-2.4) L 05/08/21 17:01 Total Bilirubin 0.6 mg/dL (0.2-1.0) 05/07/21 16:48 AST 11 U/L (15-37) L 05/07/21 16:48 ALT 15 U/L (12-78) 05/07/21 16:48 Alkaline Phosphatase 72 U/L (45-117) 05/07/21 16:48 Home Medications: Cyanocobalamin (Vitamin B-12) [Vitamin B-12] 5,000 mcg PO DAILY #90 05/09/21 Folic Acid 1 mg PO DAILY #90 tablet 05/09/21 Glucerna Shake [Glucerna*] 237 ml PO TID #90 can 05/09/21 Levofloxacin [Levaquin] 500 mg PO DAILY #5 tablet 05/09/21 Magnesium Chloride [Slow-Mag*] 64 mg PO DAILY #30 tab 05/09/21 Thiamine HCl [Vitamin B-1*] 100 mg PO DAILY #90 tablet 05/09/21 carvediloL [Coreg*] 3.125 mg PO BID 6AM 6PM #60 tab 05/09/21 New Medications: carvediloL [Coreg*] 3.125 mg PO BID 6AM 6PM #60 tab Folic Acid 1 mg PO DAILY #90 tablet Glucerna Shake [Glucerna*] 237 ml PO TID #90 can Levofloxacin [Levaquin] 500 mg PO DAILY #5 tablet Magnesium Chloride [Slow-Mag*] 64 mg PO DAILY #30 tab Thiamine HCl [Vitamin B-1*] 100 mg PO DAILY #90 tablet Cyanocobalamin (Vitamin B-12) [Vitamin B-12] 5,000 mcg PO DAILY #90 Physician Discharge Instructions: Patient presented with increased weakness, anorexia and dysuria. Some hematuria also noted. Patient was found to have a UTI. Patient with severe anorexia and severe protein malnutrition. Patient was admitted for treatment. Patient improved with IV fluids and antibiotic treatment. UTI was identified with E. coli noted on urine culture. Patient was transitioned to oral medicationLevaquin 500 mg daily. No evidence of cancer on CT scan. PSA within normal range. At discharge patient will continue with Levaquin 500 mg daily for 5 more days. UTI prevention education provided. A lengthy discussion concerning plan of care and advanced directives were addressed with son and prior to discharge. After extensive discussion, patient remains DO NOT RESUSCITATE. Son will take care of patient at home instead of patient going to skilled placement then eventually to long-term care which the mother had desired. Arrangements for home health at home will be arranged. Son will continue with caregiver duties. If his condition continues to decline with increased failure to thrive and son may think about hospice in the future. This can be further addressed and evaluated by his PCP or home health. As mentioned above patient with severe anorexia and severe protein malnutrition. This has contributed to a stage II sacral decubitus ulcer. Wound care consulted to help with education on treatment. Son will continue with treatment of decubitus ulcer. Wound culture was positive for gram-negative rods likely E. coli. Patient will continue with Levaquin 500 mg daily for 5 more days. Patient will continue with wound care as directed by wound care team. Patient will need to be moved every couple of hours to prevent pressure ulcers. Patient with hypertension. Medications have been adjusted. Patient previously on lisinopril. This was discontinued. Patient now on carvedilol. At discharge patient will continue with carvedilol 3.125 mg 1 pill twice daily. Recommend to maintain blood pressure less than 130/80. Hold if blood pressure systolic less than 110. Further adjustment can be done by his PCP. Patient with diabetes mellitus type 2. Initial hypoglycemia noted because of malnutrition. This has improved. Hemoglobin A1c 5.3. Patient previously on Metformin. No need for Metformin at discharge. Patient will continue with diet control. Because of his malnutrition patient will continue with supplemental nutrition 1 can 3 times a day. Maintain blood sugar less than 140 fasting and less than 200 after meals. If blood sugar remains above 200 consider restarting Metformin at a low dose. This can be done with the help of his PCP. For now no Metformin at discharge. Recommend to recheck hemoglobin A1c every 3 months to monitor his progress. Follow-up with PCP to further adjust. Patient with history of vitamin B12 deficiency. At discharge patient will continue with vitamin B12 supplementation daily. Patient will also continue with folic acid 1 mg daily and thiamine 100 mg daily. Suspect underlying dementia. Also with failure to thrive with severe malnutrition as mentioned above. No clear etiology to his severe malnutrition and failure to thrive but likely may be related to underlying dementia. Continue with supplementation 1 can 3 times a day. Encourage oral intake at least 3 times a day. Continue with folic acid and thiamine as mentioned above. Consider neurology evaluation as an outpatient to further evaluate and address. If his condition continues to decline consider hospice in the future. CT scan also revealed compression fracture of L1 and moderate compression fracture to T11. Patient likely with underlying osteoporosis especially with his malnutrition. This can be further addressed by his PCP. Patient may take Tylenol as needed for pain. Fall precautions in place. Continue physical therapy at home. Followup: Quintin Mcadams, [Primary Care Provider] - Time spent managing pt's care (in minutes): 55
[2021-05-09 12:20] VITALS: BP 134/72; TEMP 99.2
[2021-05-09] MEDS ORDERED: carvediloL 3.125 MG TAB PO SCH (18:00)
== END 2021-05-09 13:40 | disposition home health service (06) | DRG 689 ==
LOC: ER 13:02 → ERHOLD 17:20 → 2ND 18:04 → OBSVTOIN 05-07 11:46
PROVIDERS: ADMIT Internal Medicine; ATTEND Family Medicine
DX: N30.01 Acute cystitis with hematuria (principal); J18.9 Pneumonia, unspecified organism; E43 Unspecified severe protein-calorie malnutrition; R64 Cachexia; Z68.1 Body mass index [BMI] 19.9 or less, adult; E46 Unspecified protein-calorie malnutrition; M48.56XA Collapsed vertebra, not elsewhere classified, lumbar region, initial encounter for fracture; M48.54XA Collapsed vertebra, not elsewhere classified, thoracic region, initial encounter for fracture; E86.0 Dehydration; I10 Essential (primary) hypertension; N40.0 Benign prostatic hyperplasia without lower urinary tract symptoms; F03.90 Unspecified dementia, unspecified severity, without behavioral disturbance, psychotic disturbance, mood disturbance, and anxiety; E11.649 Type 2 diabetes mellitus with hypoglycemia without coma; L89.152 Pressure ulcer of sacral region, stage 2; B96.20 Unspecified Escherichia coli [E. coli] as the cause of diseases classified elsewhere; R62.7 Adult failure to thrive; Z66 Do not resuscitate; Z79.84 Long term (current) use of oral hypoglycemic drugs; Z79.899 Other long term (current) drug therapy; Z20.822 Contact with and (suspected) exposure to COVID-19
CPT/HCPCS: 36415; 51702; 71260; 74177; 76857; 80048; 80053; 80076; 81003; 81015; 82947; 83036; 83735; 83880; 84439; 84443; 85025; 85610; 87070; 87077; 87086; 87088; 87186; 87205; 96361; 96374; 97110; 97161; 97530; 99285; G0103; G0378; J7030; J7120; Q9967; U0003